=== PATIENT | female | born 1965 | race Caucasian/White ===

== ENCOUNTER 2025-03-20 09:45 | Emergency (ER) | payer MEDICARE, BC, SELFPAY ==
[2025-03-20 09:54] VITALS: BP 104/69; PULSE 54; RESP 18; TEMP 36.4; O2SAT 98
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
[2025-03-20] MEDS: TETANUS,DIPHTHERIA,AC PERTUSSIS ADULT (0.5 ML) BOOSTRIX IM (10:52)
[2025-03-20] MEDS: HYDROcodone/acetaminophen (*CRX) 5-325 MG TABLET 1 TAB PO (10:53)
[2025-03-20] MEDS: Please add drug allergy info to patient profile. 1 EACH XX (10:53)
--- OUTSIDE RECORDS SUMMARY | 2025-03-20 10:56 | XMS_ITS | Encounter Summary ---
Author Organization [facility] Address [address] [place] [address], [place] [address] Care Team Providers Care Web Marketing Coordinator Name Role Phone Donavon Echeverria MD Primary Care Provider [phone] Encounter Details Date Type Department Care Team (Late st Contact Info) Description 03/19/2025 Letter (Out) [facility] [address] [place] [address], [place] [address] Social History Tobacco Use Types Packs/Day Years Used Date Smoking Tobacco: Never Smokeless Tobacco: Never Alcohol Use Standard Drinks/Week Comments Yes 2 (1 standard drink = 0.6 oz pure alcohol) Two glasses of wine per month, on average; beer occasionally [facility] Utilities Answer Date Recorded In the past 12 months has th e Morph[employer], gas, oil, or water [employer] threatened to shut off services in your home? No 01/29/2025 PHQ-2 Answer Date Recorded PHQ-2 Score 0 02/05/2025 Housing Stability Vital Sign Answer Matt e Recorded In the last 12 months, was t here a time when you were not able to pay the mortgage or rent on time? No 11/24/2023 Number of Places Lived in the Last Year Not on f ile 11/24/2023 In the last 12 months, was t here a time when you did not have a steady place to sleep or slept in a long term (including now)? No 11/24/2023 Housing Stability Vital Sign Answer Matt e Recorded In the last 12 months, was t here a time when you were not able to pay the mortgage or rent on time? No 01/29/2025 Number of Times Moved in the Last Year Not on fi le 01/29/2025 At any time in the past 12 m [facility], were you homeless or living in a long term (including now)? 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 Answer Date of Assessment Author No 01/26/2024 6:25 AM Bharti Chandler RN * Are you blind or do you have serious difficulty seeing, even when wearing glasses? Answer Date of Assessment Author No 01/26/2024 6:25 AM Bharti Chandler RN * Do you have serious difficulty walking or climbing stairs? Answer Date of Assessment Author No 01/26/2024 6:25 AM Bharti Chandler RN * Do you have difficulty dressing or bathing? Answer Date of Assessment Author No 01/26/2024 6:25 AM Bharti Chandler RN * Because of a physical, mental, or emotional condition, do you have difficulty doing errands alone such as visiting a doctor's office or shopping? Answer Date of Assessment Author No 01/26/2024 6:25 AM Bharti Chandler RN documented as of this encounter Mental Status * Because of a physical, mental, or emotional condition, do you have serious difficulty concentrating, remembering, or making decisions? Answer Entry Date Author No 01/26/2024 6:25 AM CDT Bharti Recio RN documented in this encounter Plan of Treatment Upcoming Encounters Date Type Department Care Team (Late st Contact Info) Description 03/26/2025 8:00 AM CDT Appointment [facility] [address], [address] [place], [place] [id number] Primus, Anne Lucas MD [address] [place] [address] 04/02/2025 8:30 AM CDT Appointment [facility] Office Building 4 Infusion [address] [place] [address] 04/16/2025 8:30 AM CDT [facility] [address] [place] [address] Jesse Mcbride MD [address] [place] [address] 05/13/2025 8:00 AM CDT Appointment Respiratory Services - [address] [facility] [place] [address] 05/15/2025 8:15 AM CDT Office Visit [facility] Pulmonary Critical Care [address] [place] [address] Cirilo Oneill MD [address] [place] [address] 07/24/2025 8:30 AM PRESSURE TEST OPERATOR Appointment [facility] [address] [place] [address] Liana Holden MD [address] [place] [address] 07/24/2025 9:10 AM PRESSURE TEST OPERATOR Office Visit [facility] [address] [place] [address] Liana Holden MD [address] [place] [address] 08/20/2025 10:00 AM PRESSURE TEST OPERATOR Office Visit [facility] [address] [place] [address], [place] [address] Donavon Echeverria MD [address] [place] [address], [place] [address] 11/27/2025 8:00 AM CDT Office Visit [facility] Endocrinology [address] [place] [address] Devang Louise MD [address] [place] [address] documented as of this encounter Visit Diagnoses Not on filedocumented in this encounter Additional Health Concerns Assessment Noted Time PHQ-9 Depression Total Score: 3 02/06/20 25 8:19 AM CDT documented as of this encounter Care Teams Web Marketing Coordinator Relationship Specialty Start Date End Date Donavon Echeverria MD [address] [place] [address], [place] [address] PCP - General Internal Medicine 10/28/16 documented as of this encounter
--- OUTSIDE RECORDS SUMMARY | 2025-03-20 10:56 | XMS_ITS | Encounter Summary ---
Author Organization [facility] Address [address] [place] [address], [place] [address] Care Team Providers Care Gas Meter Repairer Name Role Phone Donavon Echeverria MD Primary Care Provider [phone] Reason for Visit * Reason Onset Date Comments Medication Refill 12/31/2019 Encounter Details Date Type Department Care Team (Late st Contact Info) Description 12/31/2019 Refill [facility] [address] [place] [address] Lorie Werner, show operations supervisor Refill Social History Tobacco Use Types Packs/Day Years Used Date Smoking Tobacco: Never Smokeless Tobacco: Never Alcohol Use Standard Drinks/Week Comments Yes 0 (1 standard drink = 0.6 oz pure alcohol) Two glasses of wine per month, on average; beer occasionally Comments No Sex and Gender Information Value Date Recorded Sex Assigned at Female 11/12/2019 7:52 AM AGRICULTURAL PRODUCE PACKER Legal Sex Female 12:43 PM AGRICULTURAL PRODUCE PACKER Gender Identity Female 11/12/2019 7:52 AM AGRICULTURAL PRODUCE PACKER Sexual Orientation Straight 11/12/2019 7: 52 AM AGRICULTURAL PRODUCE PACKER 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 No / Unsure 12/27/2019 8:17 AM CDT documented as of this encounter Functional Status * Are you deaf or do you have serious difficulty hearing? Answer Date of Assessment Author No 11/19/2019 3:52 PM Larisa Morley RN * Are you blind or do you have serious difficulty seeing, even when wearing glasses? Answer Date of Assessment Author No 11/19/2019 3:52 PM Larisa Morley RN * Do you have serious difficulty walking or climbing stairs? Answer Date of Assessment Author No 11/19/2019 3:52 PM Larisa Morley RN * Do you have difficulty dressing or bathing? Answer Date of Assessment Author No 11/19/2019 3:52 PM Larisa Morley RN * Because of a physical, mental, or emotional condition, do you have difficulty doing errands alone such as visiting a doctor's office or shopping? Answer Date of Assessment Author No 11/19/2019 3:52 PM Larisa Morley RN documented as of this encounter Mental Status * Because of a physical, mental, or emotional condition, do you have serious difficulty concentrating, remembering, or making decisions? Answer Entry Date Author No 11/19/2019 3:52 PM Larisa Morley RN documented in this encounter Plan of Treatment Upcoming Encounters Date Type Department Care Team (Late st Contact Info) Description 03/26/2025 8:00 AM CDT Appointment [address], [address] [place], [place] [id number] Anne Matthew MD [address] [facility] [place] [address] 04/02/2025 8:30 AM CDT Appointment [facility] Office Building [address] [place] [address] 04/16/2025 8:30 AM CDT Office Visit [facility] Rheumatology [address] [place] [address], [place] [address] Jesse Mcbride MD [address] [place] [address] 05/13/2025 8:00 AM CDT Appointment Respiratory Services - [address] [place] [address] 05/15/2025 8:15 AM CDT [facility] [address] [place] [address] Cirilo Oneill MD [address] [facility] [place] [address] 07/24/2025 8:30 AM AGRICULTURAL PRODUCE PACKER Appointment [facility] [address] [place] [address] Liana Holden MD [address] [place] [address] 07/24/2025 9:10 AM AGRICULTURAL PRODUCE PACKER Office Visit [facility] [address] [place] [address], [place] [address] Liana Holden MD [address] [place] [address] 08/20/2025 10:00 AM AGRICULTURAL PRODUCE PACKER Office Visit [facility] [address] [place] [address], [place] [address] Donavon Echeverria MD [address] [place] [address], [place] [address] 11/27/2025 8:00 AM CDT Office Visit [facility] Endocr[facility]ology [address] [facility] [place] [address] Devang Louise MD [address] [place] [address] documented as of this encounter Visit Diagnoses Diagnosis Idiopathic peripheral neuropathy Unspecified hereditary and idiopathic peripheral neuropathy documented in this encounter Additional Health Concerns Assessment Noted Time PHQ-9 Depression Total Score: 14 020 9:49 AM AGRICULTURAL PRODUCE PACKER documented as of this encounter Care Teams Gas Meter Repairer Relationship Specialty Start Date End Date Donavon Echeverria MD [address] [place] [id number] PCP - General Internal Medicine 10/28/16 documented as of this encounter
--- OUTSIDE RECORDS SUMMARY | 2025-03-20 10:56 | XMS_ITS | Clinical Summary ---
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 Please see photographs and notes related to the timing of this medication and onset of her rash. Fguihsnk-Cijaohhtku-Dn lymyxin Rash 01/28/2021 Penicillin G Rash Rash as a child Penicillins 11/25/2010 Unknown reaction Sulfa Antibiotics Hives,Itching,Rash 11/25/2010 Mild; Sulfonamides Medications Multiple Vitamins-Minerals (MULTIVITAMIN ADULT PO) Take by mouth daily Active Calcium Carbonate 600 MG TABS Take 1,500 mg by mouth daily 018 Active denosumab (PROLIA) 60 MG/ML SOSY injection Inject 1 mL (60 mg) into the skin every 6 months Active atorvaSTATin (LIPITOR) 10 MG tabletIndications:Mi xed hyperlipidemia Take 1 tablet (10 mg) by mouth daily 90 tablet 3 024 2024 Active metoprolol succinate (TOPROL XL) 25 MG XL tabletIndications:Pa lpitations Take 1 tablet (25 mg) by mouth daily 90 tablet 3 024 2024 Active levothyroxine (SYNTHROID) 100 MCG tablet Take 1 tablet (100 mcg) by mouth every morning (before breakfast) 90 tablet 1 025 2024 Active hydroxychloroquine (PLAQUENIL) 200 MG tabletIndications:Sy stemic lupus erythematosus, unspecified SLE type, unspecified organ involvement status (HCC) Take 1 tablet (200 mg) by mouth daily 90 tablet 1 025 Active predniSONE (DELTASONE) 1 MG tabletIndications:En counter for monitoring of belimumab therapy,Encounter for monitoring of hydroxychloroquine therapy,Sjogren's syndrome without extraglandular involvement,Intersti tial lung disease (HCC),Steroid-induce d osteoporosis Take 4 tablets (4 mg) by mouth daily 360 tablet 025 Active Belimumab (BENLYSTA) 200 MG/ML SOAJIndications:Syst emic lupus erythematosus (SLE) in adult ([facility]) Inject 200 mg into the skin every 7 days INJECT 200 MG UNDER THE SKIN EVERY 7 DAYS 12 mL 025 Active diazePAM (VALIUM) 5 MG tabletIndications:Hi p pain, unspecified laterality,Pain of lower extremity, unspecified laterality Take 1 tablet 1 hour before test, may repeat once if necessary 2 tablet 025 2024 Active Additional Information Patient not taking.Reported on 02/20/2025 mycophenolate (MYFORTIC) 180 MG tablet ECIndications:System ic lupus erythematosus (SLE) in adult ([facility]),Encounter for monitoring of belimumab therapy,Encounter for monitoring of hydroxychloroquine therapy,Interstitial lung disease (HCC),Sjogren's syndrome without extraglandular involvement,Encounte r for long-term current use of high risk medication Take 1 tablet by mouth twice daily for 2 weeks. If tolerating, then increase to 2 tablets in the AM, 1 tablet in the PM. 90 tablet 025 2024 Active mycophenolate (CELLCEPT) 500 MG tabletIndications:En counter for screening for viral disease,Systemic lupus erythematosus (SLE) in adult ([facility]),Encounter for monitoring of belimumab therapy,Encounter for monitoring of hydroxychloroquine therapy,Interstitial lung disease (HCC),Steroid-induce d osteoporosis,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 Take 1 tablet (500 mg) by mouth daily 90 tablet 025 2024 Discontinued Active Problems Patient Care Coordination No te Formatting of this note is d ifferent from the original. 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 Report: 08/18/2020 Med Management Agreement: none Problem Noted Date Diagnosed Date Osteopenia of multiple sites 03/18/2025 Primary osteoarthritis involving multiple joints 02/05/2025 Acute deep vein thrombosis ( DVT) of femoral vein of left lower extremity 05/12/2022 Reactive depression 12/27/2019 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 Pulmonary fibrosis 12/02/2019 Sepsis 11/14/2019 Chronic respiratory failure with hypoxia 020 Bronchopneumonia 11/14/2019 Shock 11/14/2019 Steroid-induced osteoporosis 11/09/2019 Overweight with body mass index (BMI) 25.0-29.9 11/08/2019 Thoracic spondylosis without myelopathy 11/08/19 Lumbosacral spondylosis without myelopathy 11/08 Idiopathic pulmonary fibrosis 11/06/2019 Compression fracture of T11 vertebra with routin e healing 10/17/2019 Spondylolysis, lumbar region 09/05/2019 Chronic midline low back pain without sciatica 1 11/06/2018 Maris esophagitis 09/05/2019 Polyneuropathy, peripheral sensorimotor axonal 1 10/01/2018 Pericardial effusion 07/25/2019 Pneumonia of left lower lobe due to infectious o rganism 06/05/2019 Pharyngeal dysphagia 03/26/2019 Gastroenteritis 03/26/2019 Iron deficiency 03/26/2019 Sjogren's syndrome 03/26/2019 Medication monitoring encounter 03/26/2019 Encounter for medical care 03/26/2019 Overview (12/24/2020): [place], [place] PCP: Osmel Echeverria MD [place] PCP: Osmel Echeverria MD Encounter for monitoring of belimumab therapy Cellulitis of left upper extremity 03/20/2019 Low iron 03/16/2019 Systemic lupus erythematosus 01/10/2019 Overview (02/18/2022): [facility] strong positive dsDNA, low C3 and C4, 06/27/2018 skin biopsy (Abi) positive lupus band test Encounter for monitoring of hydroxychloroquine t herapy 01/10/2019 Pericardial effusion 12/05/2018 SOB (shortness of breath) on exertion 12/05/2018 PVC's (premature ventricular contractions) 11/27 Sicca syndrome 11/27/2018 Long-term use of Plaquenil 09/08/2018 Left lower quadrant abdominal pain of unknown et iology 07/28/2018 Long-term use of hydroxychloroquine 07/24/2018 Overview (07/24/2018): METHOTREXATE stopped 5 mg BIW 02/2016 (elevated liver enzymes); HYDROXYCHLOROQUINE 04/2016-02/17/2017; METHOTREXATE resumed 11/17/2016; 11/19/2016 TPMT activity normal Low serum complement C4 07/24/2018 Low serum complement C3 07/24/2018 Normocytic anemia 07/24/2018 Bullous pemphigoid 06/10/2018 High risk medication use 06/10/2018 Raynaud's phenomenon without gangrene 06/10/2018 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 02/09 Leukopenia 02/09/2018 Pancytopenia 04/28/2017 Encounter for methotrexate monitoring 11/17/2016 Angio-edema 11/10/2016 Ankle edema 11/10/2016 Health care maintenance 10/28/2016 Overview (10/28/2016): Colon sep 18 2014 Polyps removed needs again 2018 Dr forde History of colon polyps 10/28/2016 Overview (10/28/2016): Colon aug 2014 Due for repeat 2019 Globus sensation 10/07/2016 LPRD (laryngopharyngeal reflux disease) 10/07/19 17 Postoperative hypothyroidism 08/31/2016 Fibrocystic disease of breast 09/30/2013 Non-neoplastic nevus 09/30/2013 Overview (06/07/2023): CHEST AND RIGHT THIGH Panic attack 01/03/2012 Sjogren's syndrome without extraglandular involv ement Palpitations Resolved Problems Problem Noted Date Diagnosed Date Resolved Date Idiopathic peripheral neuropathy 11/08/2019 11/23/2019 Thyroid disorder 06/05/2010 10/28/2016 Encounters Date Type Department Care Team Description 03/19/2025 Letter (Out) [facility] [address] [place] [address] 03/17/2025 Refill [facility] Rheumatology [address] [place] [address] [place] [address] Jesse Mcbride MD Med Change Request 03/14/2025 Telephone [facility] [address] [place] [address] Osmel Echeverria MD Follow-up 03/12/2025 7:58 AM CDT - 03/12/2025 11:59 PM CDT Hospital En[facility] [place] [place] [facility] [address] [place] [address] Osmel Echeverria MD Hip pain, unspecified laterality; Pain of lower extremity, unspecified laterality Discharge Disposition: Home 03/05/2025 9:20 AM CDT Lab/X-Ray Only [facility] [place] [place] [facility] [address] [place] [address] Osmel Echeverria MD Screening for diabetes mellitus 02/25/2025 Orders Only [facility] [address] [place] [address] Jenny Perdomo CMA Screening for diabetes mellitus (Primary Dx) 02/22/2025 Letter (Out) [facility] [place] [facility] [address] [address] 02/20/2025 3:20 PM CDT Lab/X-Ray Only [facility] [address] [address] Jesse Mcbride MD Systemic lupus erythematosus (SLE) in adult (HCC); Encounter for monitoring of belimumab therapy; Encounter for monitoring of hydroxychloroquine therapy; Interstitial lung disease (HCC); Sjogren's syndrome without extraglandular involvement; Encounter for long-term current use of high risk medication; History of DVT in adulthood; Rash; Skin cancer screening 02/20/2025 1:30 PM CDT Office Visit [facility] Rheumatology [address] [address] Jesse Mcbride MD Systemic lupus erythematosus (SLE) in adult ([facility]) (Primary Dx); Encounter for monitoring of belimumab therapy; Encounter for monitoring of hydroxychloroquine therapy; Interstitial lung disease (HCC); Sjogren's syndrome without extraglandular involvement; Encounter for long-term current use of high risk medication; History of DVT in adulthood; Rash; Skin cancer screening 02/08/2025 Telephone [facility] [address] [address] Osmel Echeverria MD Results 02/06/2025 9:20 AM CDT Lab/X-Ray Only [facility] [address] [address] Osmel Echeverria MD Primary osteoarthritis involving multiple joints; Neuropathy 02/06/2025 9:16 AM CDT - 02/06/2025 11:59 PM CDT Hospital Encounter [facility] Radiology [address] [address] Osmel Echeverria MD Primary osteoarthritis involving multiple joints; Neuropathy Discharge Disposition: Home 02/06/2025 9:16 AM CDT - 02/06/2025 11:59 PM CDT Hospital Encounter [facility] [address] [place] [address] Osmel Echeverria MD Primary osteoarthritis involving multiple joints; Neuropathy Discharge Disposition: Home 02/05/2025 8:20 AM CDT Office Visit [facility] [address] [facility] [address] [place] [address] Osmel Echeverria MD Postoperative hypothyroidism (Primary Dx); Pulmonary fibrosis (HCC); Sjogren's syndrome without extraglandular involvement; Primary osteoarthritis involving multiple joints; Neuropathy 02/01/2025 Refill [facility] Rheumatology [address] [place] [address] Huong Brown, LABORATORY SAMPLE CARRIER Med Change Request 01/31/2025 8:00 AM CDT Office Visit [facility] Medical Office Building [address] [place] [address] [place] [address] Donovan Hyatt MD Dependent edema (Primary Dx); Palpitations 01/04/2025 9:20 AM CDT Lab/X-Ray Only [facility] [address] [place] [address] Huong Brown NP Encounter for screening for viral disease; Systemic lupus erythematosus (SLE) in adult (HCC); Encounter for monitoring of belimumab therapy; Encounter for monitoring of hydroxychloroquine therapy; Interstitial lung disease (HCC); Steroid-induced osteoporosis; 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 01/04/2025 [facility] Rheumatology [address] [place] [address] Huong Brown NP Med Change Request from Last 3 Months Immunizations Immunization Administration Dates Next Due Covid-19 21 Day Interval Pfizer 05/06/2021,12/09,11/18/2020 Covid-19 21 Day Interval Pfi zer Marcus Cap 12/21/2021 Covid-19 Pfizer Bivalent Meek ster 12+ Yrs 08/18/2022 Influenza =>65yo, High Dose, Preservative Free 07/26/2024 Influenza =>65yo, Quadrivale nt, Adjuv, Preservative Free 07/05/2023,08/04/2022,07/09/2021,06/23 Influenza >3yo Split Virus 07/01/2010 Influenza >3yo Whole Virus 06/05/2009 Influenza Quadrivalent, Intradermal 06/19/2015 Influenza Quadrivalent, Pres ervative Free 07/10/2019,07/18/2018,10/03/2017,06/19,06/19/2013 Influenza Split Virus 05/20/2019, 018,06/16/2014,06/18,06/25/2011 Influenza Split Virus Preser vative Free 06/19/2013 Influenza, MDCK, trivalent, PF >=6 mos 3 Influenza, Quadrivalent 07/10/2019,05/20,07/18/2018,10/03,06/19/2015 Influenza, Quadrivalent (ccI IV4), Pres Free 06/19/2013 Influenza, Quadrivalent, Ped iatric, Preservative Free 07/10/2019,07/18/2018,10/03/2017 Influenza, Seasonal Vaccine 10/03/2017 NOVEL H1N1 (Preservative) 07/10/2009 Pneumococcal Conjugate Pcv20 06/07/2023 Pneumococcal Polysaccharide PPV23 05/15/2018 RSV, Recombinant Adjuvant 06/19/2024 Tdap 06/18/2013 Zoster Vaccine Recombinant 12/23/2023,07/11/2023 pneumococcal Conjugate PCV13 03/31/2016 Family History Medical History Relation Name Comments No Known Problems Brother 1 No Known Problems Brother 2 Stroke Father Gene Diabetes Maternal Grandmother Louvary Heart Disease Maternal Grandmother Scott Diabetes Mother Agnes Diet control Heart Disease Mother Agnes BRCA 1/2 (Postmeno) Neg Hx BRCA 1/2 (Premeno) Neg Hx Breast Cancer Neg Hx Breast Cancer (Postmeno) Neg Hx Breast Cancer (Premeno) Neg Hx Relation Name Status Comments Brother 1 Alive 1959 Brother 2 Alive 2 Father Gene (Age 83) Maternal Grandfather Maternal Grandmother Scott Mother Agnes 1931-11/2017 Paternal Grandfather Paternal Grandmother Social History Tobacco Use Types Packs/Day Years Used Date Smoking Tobacco: Never Smokeless Tobacco: Never Tobacco Cessation:Counseling Given: Yes Alcohol Use Standard Drinks/Week Comments Yes 2 (1 standard drink = 0.6 oz pure alcohol) Two glasses of wine per month, on average; beer occasionally [facility] Utilities Answer Date Recorded In the past 12 months has th e electric, gas, oil, or water company threatened to shut off services in your [...] place to sleep or slept in a retirement (including now)? No 11/24/2023 Housing Stability Vital Sign Answer Matt e Recorded In the last 12 months, was t here a time when you were not able to pay the mortgage or rent on time? No 01/29/2025 Number of Times Moved in the Last Year Not on fi le 01/29/2025 At any time in the past 12 m [facility], were you homeless or living in a retirement (including now)? 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 Not on file Not on file Not on file Last Filed Vital Signs Vital Sign Reading Time Taken Comments Blood Pressure 102/58 02/20/2025 1:27 PM CDT Pulse 60 02/20/2025 1:27 PM CDT Temperature 36.2 C (97.1 F) 03/19/2024 7:55 AM CDT Respiratory Rate 16 01/26/2024 7:10 AM CDT Oxygen Saturation 99% 02/20/2025 1:27 PM CDT Inhaled Oxygen Concentration - - Weight 70.8 kg (156 lb) 02/20/2025 1:27 PM CDT Height 165.1 cm (5' 5) 02/20/2025 1:27 PM CDT Body Mass Index 25.96 02/20/2025 1:27 PM CDT Plan of Treatment Upcoming Encounters Date Type Department Care Team (Late st Contact Info) Description 03/26/2025 8:00 AM CDT Appointment [facility] [address] [facility], [address] [place] [address] Anne Matthew MD [address] [facility] [place] [address] 04/02/2025 8:30 AM CDT Appointment [facility] [place] [place] [facility] [place] [id number] [facility] [place] [address] 04/16/2025 8:30 AM CDT Office Visit [facility] Rheumatology [address], [place] [address] [place] [address], [place] [address] Jesse Mcbride MD [address] [place] [address] 05/13/2025 8:00 AM CDT Appointment Respiratory Services - [address] [facility] [place] [address] 05/15/2025 8:15 AM CDT Office Visit [facility] [place] [place] [facility] [address] [facility] [place] [address] Cirilo Oneill MD [address] [place] [address] 07/24/2025 8:30 AM PLANNING ASSOCIATE Appointment [facility] [place] [facility] [address] [facility] [address] [place] [address] Liana Holden MD [address] [facility] [address] [place] [address] 07/24/2025 9:10 AM PLANNING ASSOCIATE Office Visit [facility] [address] [place] [address] [place] [address], [place] [address] Liana Holden MD [address] [place] [address] 08/20/2025 10:00 AM PLANNING ASSOCIATE Office Visit [facility] [address] [facility], [address] [place] [address] Osmel Echeverria MD [address] [place] [address] 11/27/2025 8:00 AM CDT Office Visit [facility] Endocrinology [address] [facility] [place] [address] Devang Louise MD [address] [facility] [place] [address] Health Maintenance Due Date Last Done Comments HIV Screening 1965 MMR VACCINES (1 of 1 - Standard series) 1966 ADULT TETANUS 06/18/2023 06/18/2013 COVID-19 Immunization (9 - Pfizer risk season) 2024 06/19/2024, 07/11/2023, 01/31/2023, Additional history exists Influenza Vaccine 04/19/2025 07/26/2024, , 08/04/2022, Additional history exists BREAST CANCER SCREENING 07/04/2025 07/04/20, 07/05/2023, 06/23/2023, Additional history exists Medicare Annual Wellness (AWV) 08/13/2025 08/13/2024, 06/07/2023 LIPID TESTING 10/11/2025 10/11/2024, 06/20, 04/20/2023, Additional history exists DEPRESSION SCREENING 02/05/2026 02/05/2025, 08/13/2024, 07/04/2024, Additional history exists BMI Above/Below Normal Parameters 02/20/2026 02/20/2025, 02/20/2025, 11/27/2024, Additional history exists Colon Cancer Screening 01/25/2027 01/26/2024, 2013 CERVICAL CANCER SCREENING 07/04/20272023, 07/04/2024, 07/04/2024, Additional history exists Diabetes Screening 03/05/2028 03/05/2025, 0 03/05/2025, 03/05/2025, Additional history exists Pneumococcal Vaccine: Peds to 50 & At-Risk Patients Aged Out 06/07/2023, 05/15/2018, 03/31/2016 No longer eligible based on patient's age to complete this topic Zoster Vaccine (Recombinant Vaccine) Completed 12/23/2023, 07/11/2023 CRC: Colonoscopy Discontinued 01/26/2024 RSV Vaccines Completed 06/19/2024 Hepatitis C Screening ages 18 to 79 once Completed 12/06/2024 HEPATITIS A VACCINES Aged Out No long er eligible based on patient's age to complete this topic HEPATITIS B VACCINES Aged Out No long er eligible based on patient's age to complete this topic HIB VACCINES Aged Out No longer eligi ble based on patient's age to complete this topic HPV VACCINES Aged Out No longer eligi ble based on patient's age to complete this topic IPV VACCINES Aged Out No longer eligi ble based on patient's age to complete this topic MENINGOCOCCAL VACCINE Aged Out No rebecca ellen eligible based on patient's age to complete this topic Meningococcal B Vaccine Aged Out No l onger eligible based on patient's age to complete this topic ROTAVIRUS VACCINES Aged Out No longer eligible based on patient's age to complete this topic Procedures Procedure Name Priority Date/Time Associated Diagnosis Comments MRI LUMBAR SPINE WO CONTRAST Routine 03/12/2025 8:46 AM CDT Hip pain, unspecified laterality Pain of lower extremity, unspecified laterality GLUCOSE TOLERANCE 3 HR (180 MIN) Routine 03/05/2025 1:29 PM CDT Screening for diabetes mellitus GLUCOSE TOLERANCE 2 HR (120 MIN) Routine 03/05/2025 12:28 PM CDT Screening for diabetes mellitus GLUCOSE TOLERANCE 1 HR (60 MIN) Routine 03/05/2025 11:22 AM CDT Screening for diabetes mellitus GLUCOSE TOLERANCE 0 MIN Routine 03/05/2025 9:20 AM CDT Screening for diabetes mellitus HEMOGLOBIN A1C Routine 02/20/2025 3:30 PM CDT Systemic lupus erythematosus (SLE) in adult ([facility]) Encounter for monitoring of belimumab therapy Encounter for monitoring of hydroxychloroquine therapy Interstitial lung disease (HCC) Sjogren's syndrome without extraglandular involvement Encounter for long-term current use of high risk medication CARDIOLIPIN AB IGA/G/M Routine 02/20/2025 3:30 PM CDT Systemic lupus erythematosus (SLE) in adult ([facility]) Encounter for monitoring of belimumab therapy Encounter for monitoring of hydroxychloroquine therapy Interstitial lung disease (HCC) Sjogren's syndrome without extraglandular involvement Encounter for long-term current use of high risk medication History of DVT in adulthood Rash Skin cancer screening BETA 2 GLYCOPROTEIN 1 AB IGA Routine 02/20/2025 3:30 PM CDT Systemic lupus erythematosus (SLE) in adult ([facility]) Encounter for monitoring of belimumab therapy Encounter for monitoring of hydroxychloroquine therapy Interstitial lung disease (HCC) Sjogren's syndrome without extraglandular involvement Encounter for long-term current use of high risk medication History of DVT in adulthood Rash Skin cancer screening BETA 2 GLYCOPROTEIN 1 IGG IGM Routine 02/20/2025 3:30 PM CDT Systemic lupus erythematosus (SLE) in adult ([facility]) Encounter for monitoring of belimumab therapy Encounter for monitoring of hydroxychloroquine therapy Interstitial lung disease (HCC) Sjogren's syndrome without extraglandular involvement Encounter for long-term current use of high risk medication History of DVT in adulthood Rash Skin cancer screening LUPUS ANTICOAGULANT REFLEX PANEL Routine 02/20/2025 3:30 PM CDT Systemic lupus erythematosus (SLE) in adult ([facility]) Encounter for monitoring of belimumab therapy Encounter for monitoring of hydroxychloroquine therapy Interstitial lung disease (HCC) Sjogren's syndrome without extraglandular involvement Encounter for long-term current use of high risk medication History of DVT in adulthood Rash Skin cancer screening ANGIOTENSIN CONVERTING ENZYME Routine 02/20/2025 3:30 PM CDT Systemic lupus erythematosus (SLE) in adult ([facility]) Encounter for monitoring of belimumab therapy Encounter for monitoring of hydroxychloroquine therapy Interstitial lung disease (HCC) Sjogren's syndrome without extraglandular involvement Encounter for long-term current use of high risk medication History of DVT in adulthood Rash Skin cancer screening COMPREHENSIVE METABOLIC PANEL Routine 02/20/2025 3:30 PM CDT Systemic lupus erythematosus (SLE) in adult ([facility]) Encounter for monitoring of belimumab therapy Encounter for monitoring of hydroxychloroquine therapy Interstitial lung disease (HCC) Sjogren's syndrome without extraglandular involvement Encounter for long-term current use of high risk medication CBC W AUTO DIFF Routine 02/20/2025 3:30 PM CDT Systemic lupus erythematosus (SLE) in adult ([facility]) Encounter for monitoring of belimumab therapy Encounter for monitoring of hydroxychloroquine therapy Interstitial lung disease (HCC) Sjogren's syndrome without extraglandular involvement Encounter for long-term current use of high risk medication SEDIMENTATION RATE (SED RATE) Routine 02/20/2025 3:30 PM CDT Systemic lupus erythematosus (SLE) in adult ([facility]) Encounter for monitoring of belimumab therapy Encounter for monitoring of hydroxychloroquine therapy Interstitial lung disease (HCC) Sjogren's syndrome without extraglandular involvement Encounter for long-term current use of high risk medication C-REACTIVE PROTEIN Routine 02/20/2025 3: 30 PM CDT Systemic lupus erythematosus (SLE) in adult ([facility]) Encounter for monitoring of belimumab therapy Encounter for monitoring of hydroxychloroquine therapy Interstitial lung disease (HCC) Sjogren's syndrome without extraglandular involvement Encounter for long-term current use of high risk medication DSDNA ANTIBODY Routine 02/20/2025 3:30 PM CDT Systemic lupus erythematosus (SLE) in adult ([facility]) Encounter for monitoring of belimumab therapy Encounter for monitoring of hydroxychloroquine therapy Interstitial lung disease (HCC) Sjogren's syndrome without extraglandular involvement Encounter for long-term current use of high risk medication C3 COMPLEMENT Routine 02/20/2025 3:30 PM CDT Systemic lupus erythematosus (SLE) in adult ([facility]) Encounter for monitoring of belimumab therapy Encounter for monitoring of hydroxychloroquine therapy Interstitial lung disease (HCC) Sjogren's syndrome without extraglandular involvement Encounter for long-term current use of high risk medication C4 COMPLEMENT Routine 02/20/2025 3:30 PM CDT Systemic lupus erythematosus (SLE) in adult ([facility]) Encounter for monitoring of belimumab therapy Encounter for monitoring of hydroxychloroquine therapy Interstitial lung disease (HCC) Sjogren's syndrome without extraglandular involvement Encounter for long-term current use of high risk medication URINALYSIS (UA) Routine 02/20/2025 3:30 PM CDT Systemic lupus erythematosus (SLE) in adult ([facility]) Encounter for monitoring of belimumab therapy Encounter for monitoring of hydroxychloroquine therapy Interstitial lung disease (HCC) Sjogren's syndrome without extraglandular involvement Encounter for long-term current use of high risk medication PROTEIN/CREATININE RATIO URINE Routine 02/20/2025 3:30 PM CDT Systemic lupus erythematosus (SLE) in adult ([facility]) Encounter for monitoring of belimumab therapy Encounter for monitoring of hydroxychloroquine therapy Interstitial lung disease (HCC) Sjogren's syndrome without extraglandular involvement Encounter for long-term current use of high risk medication XR LUMBAR SPINE 2-3 VIEWS Routine 02/06/2025 9:41 AM CDT Primary osteoarthritis involving multiple joints Neuropathy XR PELVIS W LATERAL HIP BILATERAL Routine 02/06/2025 9:41 AM CDT Primary osteoarthritis involving multiple joints Neuropathy XR KNEE RIGHT 3 VIEWS Routine 02/06/2025 9:41 AM CDT Primary osteoarthritis involving multiple joints Neuropathy XR KNEE LEFT 3 VIEWS Routine 02/06/2025 9:41 AM CDT Primary osteoarthritis involving multiple joints Neuropathy B12 FOLATE Routine 02/06/2025 9:13 AM CDT Primary osteoarthritis involving multiple joints Neuropathy CBC W AUTO DIFF Routine 01/04/2025 9:23 AM CDT Encounter for screening for viral disease Systemic lupus erythematosus (SLE) in adult ([facility]) Encounter for monitoring of belimumab therapy Encounter for monitoring of hydroxychloroquine therapy Interstitial lung disease (HCC) Steroid-induced osteoporosis half-way current use of systemic steroids COMPREHENSIVE METABOLIC PANEL Routine 01/04/2025 9:23 AM CDT Encounter for screening for viral disease Systemic lupus erythematosus (SLE) in adult ([facility]) Encounter for monitoring of belimumab therapy Encounter for monitoring of hydroxychloroquine therapy Interstitial lung disease (HCC) Steroid-induced osteoporosis half-way current use of systemic steroids C-REACTIVE PROTEIN Routine 01/04/2025 9: 23 AM CDT Encounter for screening for viral disease Systemic lupus erythematosus (SLE) in adult ([facility]) Encounter for monitoring of belimumab therapy Encounter for monitoring of hydroxychloroquine therapy Interstitial lung disease (HCC) Steroid-induced osteoporosis 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 SEDIMENTATION RATE (SED RATE) Routine 01/04/2025 9:23 AM CDT Encounter for screening for viral disease Systemic lupus erythematosus (SLE) in adult ([facility]) Encounter for monitoring of belimumab therapy Encounter for monitoring of hydroxychloroquine therapy Interstitial lung disease (HCC) Steroid-induced osteoporosis 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 PROTEIN/CREATININE RATIO URINE Routine 01/04/2025 9:23 AM CDT Encounter for screening for viral disease Systemic lupus erythematosus (SLE) in adult ([facility]) Encounter for monitoring of belimumab therapy Encounter for monitoring of hydroxychloroquine therapy Interstitial lung disease (HCC) Steroid-induced osteoporosis 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 URINALYSIS WITH REFLEX TO CULTURE, IF INDICATED Routine 01/04/2025 9:23 AM CDT Encounter for screening for viral disease Systemic lupus erythematosus (SLE) in adult ([facility]) Encounter for monitoring of belimumab therapy Encounter for monitoring of hydroxychloroquine therapy Interstitial lung disease (HCC) Steroid-induced osteoporosis half-way current use of systemic steroids C4 COMPLEMENT Routine 01/04/2025 9:23 AM CDT Encounter for screening for viral disease Systemic lupus erythematosus (SLE) in adult ([facility]) Encounter for monitoring of belimumab therapy Encounter for monitoring of hydroxychloroquine therapy Interstitial lung disease (HCC) Steroid-induced osteoporosis half-way current use of systemic steroids C3 COMPLEMENT Routine 01/04/2025 9:23 AM CDT Encounter for screening for viral disease Systemic lupus erythematosus (SLE) in adult ([facility]) Encounter for monitoring of belimumab therapy Encounter for monitoring of hydroxychloroquine therapy Interstitial lung disease (HCC) Steroid-induced osteoporosis half-way current use of systemic steroids HEPATITIS C ANTIBODY Routine 12/06/2024 8:45 AM CDT Encounter for screening for viral disease LIPID PROFILE Routine 10/11/2024 8:40 AM 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 2. Multiple chronic thoracolumbar vertebral compression fractures. No acute fracture. Narrative 03/12/2025 9:01 AM CDT LUMBAR SPINE MRI INDICATION: Back pain. Lumbar spine degenerative change.. TECHNIQUE: Multisequence, multiplanar MRI of the lumbar spine without IV contrast. Sequences obtained include: sagittal T1 weighted, sagittal T2 weighted, sagittal STIR, and axial T2 weighted scans were performed through the lumbar spine. COMPARISON: 02/06/2025 radiographs FINDINGS: Numbering for this report presumes five non-rib bearing lumbar type vertebral bodies, with L5 defined by the lumbosacral angle. The conus medullaris terminates at the L1 level. Mild left convex lumbar scoliosis. 2 mm retrolisthesis L2 on L3. 8 mm anterolisthesis L4 on L5. Chronic compression deformities at each level from T10 through L5 with height loss most pronounced at T11 where there is 70% anterior wedge compression deformity. No bone marrow edema to suggest acute compression fracture. Lumbar ligamentous structures are intact. Moderate intervertebral disc height loss and endplate degenerative change L4-5. Otherwise, mild spondylosis at other lumbar levels. At T10-11, mild annular bulge and small osteophytes with mild bilateral facet arthropathy and ligamentum flavum thickening mildly narrows the central canal with mild bilateral foraminal stenosis. L1-L2: Patent central canal and neural foramina. L2-L3: Mild annular bulge and small endplate osteophytes. Mild bilateral facet arthropathy with mild left foraminal stenosis. Patent central canal and right neural foramen. L3-L4: Mild bilateral facet arthropathy with mild right foraminal stenosis. Patent central canal and left neural foramen. L4-L5: Mild annular bulge with posterior annular fissuring and small osteophytes. Mild bilateral facet arthropathy and ligamentum flavum thickening. Mild central canal stenosis. Moderate right and mild left foraminal stenosis. L5-S1: Mild annular bulge. Mild bilateral facet arthropathy with mild right foraminal stenosis. Canal and left neural foramen. Included intraabdominal structures are unremarkable. Procedure Note Monroe Ceja MD - 06/24/2025 LUMBAR SPINE MRI INDICATION: Back pain. Lumbar spine degenerative change.. TECHNIQUE: Multisequence, multiplanar MRI of the lumbar spine without IV contrast. Sequences obtained include: sagittal T1 weighted, sagittal T2 weighted, sagittal STIR, and axial T2 weighted scans were performedthrough the lumbar spine. COMPARISON: 02/06/2025 radiographs FINDINGS: Numbering for this report presumes five non-rib bearing lumbar typevertebral bodies, with L5 defined by the lumbosacral angle. The conus medullaris terminates at the L1 level. Mild left convex lumbar scoliosis. 2 mm retrolisthesis L2 on L3. 8 mm anterolisthesis L4 on L5. Chronic compression deformities at each levelfrom T10 through L5 with height loss most pronounced at T11 where there is 70%anterior wedge compression deformity. No bone marrow edema to suggest acutecompression fracture. Lumbar ligamentous structures are intact. Moderateintervertebral disc height loss and endplate degenerative change L4-5. Otherwise, mild spondylosis at other lumbar levels. At T10-11, mild annular bulge and small osteophytes with mild bilateralfacet arthropathy and ligamentum flavum thickening mildly narrows the centralcanal with mild bilateral foraminal stenosis. L1-L2: Patent central canal and neural foramina. L2-L3: Mild annular bulge and small endplate osteophytes. Mild bilateralfacet arthropathy with mild left foraminal stenosis. Patent central canal andright neural foramen. L3-L4: Mild bilateral facet arthropathy with mild right foraminalstenosis. Patent central canal and left neural foramen. L4-L5: Mild annular bulge with posterior annular fissuring and small osteophytes. Mild bilateral facet arthropathy and ligamentum flavumthickening. Mild central canal stenosis. Moderate right and mild left foraminalstenosis. L5-S1: Mild annular bulge. Mild bilateral facet arthropathy with mildright foraminal stenosis. Canal and left neural foramen. Included intraabdominal structures are unremarkable. IMPRESSION: 1. Lumbar spine degenerative change with multilevel stenosis as detailedabove, most pronounced at L4-5 where there is grade 1 anterolisthesis withmoderate right and mild left foraminal stenosis. 2. Multiple chronic thoracolumbar vertebral compression fractures. Noacute fracture. Osmel Echeverria MD [facility] IM[facility] MRI ORDERABLES Final Result * GLUCOSE TOLERANCE 3 HR (180 MIN) (03/05/2025 1:29 PM CDT) Glucose, GTT 3 Hr 91 70 - 140 MG/DL [facility] Blood 03/05/2025 1:29 PM CDT 03/05/2025 1:30 PM CDT Osmel Echeverria MD CHEMISTRY ORDERABLES Final Re sult Performing Organization Address [facility] Co de Phone Number [facility] [address] [place] [address] * (ABNORMAL) GLUCOSE TOLERANCE 2 HR (120 MIN) (03/05/2025 12:28 PM CDT) Glucose, GTT 2 Hr 44(LL) 70 - 155 MG/DL [facility] Blood 03/05/2025 12:2 8 PM CDT 03/05/2025 12:29 PM CDT Osmel Echeverria MD CHEMISTRY ORDERABLES Final Re sult Performing Organization Address [facility] Phone Number [facility] [address] [place] [address] * GLUCOSE TOLERANCE 1 HR (60 MIN) (03/05/2025 11:22 AM CDT) Glucose, GTT 1 Hr 143 70 - 180 MG/DL [facility] Blood 03/05/2025 11:2 2 AM CDT 03/05/2025 11:52 AM CDT us Osmel Echeverria MD CHEMISTRY ORDERABLES Final Re sult Performing Organization Address [facility] Co tn Phone Number [facility] [address] [place] [address] * GLUCOSE TOLERANCE 0 MIN (03/05/2025 9:20 AM CDT) Glucose, GTT Fasting 86 70 - 95 MG/DL [facility] Blood 03/05/2025 9:20 AM CDT 03/05/2025 9:21 AM CDT Osmel Echeverria MD CHEMISTRY ORDERABLES Final Re sult [facility] [address] [place] [address] * LUPUS ANTICOAGULANT REFLEX PANEL (02/20/2025 3:30 PM CDT) Lupus Protime-D 12.3 12.0 - 15.5 s [facility] PTT-LA RATIO 0.83 <=1.20 [facility] DRVVT SCREEN RATIO 0.87 <=1.20 [facility] ANTI-XA QUALITATIVE INTERPRETATION Not Performed Not Present [facility] Thrombin Time Not Performed <=19.5 s [facility] ANTICOAGULANT MEDICATION NEUTRALIZATION Not Performed Not Performed [facility] NEUTRALIZED PTT-LA RATIO Not Performed <=1.20 [facility] NEUTRALIZED DRVVT SCREEN RATIO Not Performed <=1.20 [facility] DRVVT 1:1 MIX RATIO Not Performed <=1.20 [facility] DRVVT CONFIRMATION RATIO Not Performed <=1.20 [facility] HEXAGONAL PHOSPHOLIPID CONFIRMATION Not Performed <=7.9 s [facility] LUPUS ANTICOAGULANT, INTERPRETATION See Note [facility] Comment: (NOTE) Lupus anticoagulant not detected. This panel did not detect evidence for heparin, direct thrombin inhibitors, or direct Xa inhibitors and drug neutralization was not performed. Lupus anticoagulant antibodies are heterogeneous and antibody titers fluctuate over time. Laboratory tests used to identify lupus anticoagulant demonstrate variable sensitivity. Testing is best performed when the patient is not acutely ill and not anticoagulated. If there is strong clinical suspicion for antiphospholipid antibody syndrome (APS), consider testing for cardiolipin and beta-2 glycoprotein 1 antibodies (IgG and IgM) if this testing has not already been performed. INTERPRETIVE INFORMATION: Lupus Anticoagulant Reflex Panel This test was developed and its performance characteristics determined by [facility]. It has not been cleared or approved by the U.S. Food and Drug Administration. This test was performed in a CLIA-certified laboratory and is intended for clinical purposes. Performed By: [facility] [address] [place] [id number] Dishwasher: Elvin Boston MD, PhD CLIA Number: [id number] 02/20/2025 3:30 PM CDT 02/20/2025 3:32 PM CDT Jesse Cabrera MD LAB SEND OUT ORDERABLES Fin al Result Performing Organization Address [facility] Co de Phone Number [facility] [address] [place] [address] * (ABNORMAL) DSDNA ANTIBODY (02/20/2025 3:30 PM CDT) DSDNA Quant 6(H) 0 - 4 IU/ML [facility] DSDNA Comment ====dsDNA Normal Ranges==== [facility] Comment: <5 IU/ML Negative 5-9 IU/ML Indeterminate >9 IU/ML Positive 02/20/2025 3:30 PM CDT 02/20/2025 3:32 PM CDT Jesse Cabrera MD CHEMISTRY ORDERABLES Final Result Performing Organization Address [facility] Co de Phone Number [facility] [address] [place] [address] * BETA 2 GLYCOPROTEIN 1 AB IGA (02/20/2025 3:30 PM CDT) Beta-2 Glycoprotein 1 IgA Antibody <10 <=20 [facility] Comment: (NOTE) Performed By: [facility] [address] [place] [address] Dishwasher: Elvin Boston MD, PhD CLIA Number: [id number] Blood 02/20/2025 3:30 PM CDT 02/20/2025 3:33 PM CDT Jesse Cabrera MD LAB SEND OUT ORDERABLES Fin al Result Performing Organization Address [facility] Co de Phone Number [facility] [address] [place] [address] * PROTEIN/CREATININE RATIO URINE (02/20/2025 3:30 PM CDT) Only the most recent of2 resultswithin the time period is included. Protein Urine <6 MG/DL [facility] Comment:NO NORMAL RANGE Creatinine Urine 83 MG/DL [facility] Comment:NO NORMAL RANGE Prot/Creat Ratio, UR UNABLE TO CALCULATE <0.10 [facility] Urine 02/20/2025 3:30 PM CDT 02/20/2025 3:33 PM CDT us Jesse Cabrera MD URINE ORDERABLES Final Resu lt Performing Organization Address City/[facility]/ZIP Co de Phone Number [facility] [address] [place] [address] * (ABNORMAL) SEDIMENTATION RATE (SED RATE) (02/20/2025 3:30 PM CDT) Only the most recent of2 resultswithin the time period is included. Sedimentation Rate, Erythrocyte 43(H) 0 - 20 MM/HR [facility] Blood 02/20/2025 3:30 PM CDT 02/20/2025 3:32 PM CDT us Jesse Cabrera MD HEMATOLOGY ORDERABLES Final Result Performing Organization Address [facility] Co de Phone Number [facility] [address] [place] [address] * BETA 2 GLYCOPROTEIN 1 IGG IGM (02/20/2025 3:30 PM CDT) Beta-2 Glycoprotein 1 IgG Antibody <10 <=20 [facility] Beta-2 Glycoprotein 1 IgM Antibody <10 <=20 [facility] Comment: (NOTE) INTERPRETIVE INFORMATION: [id number] I, IgG and IgM Antibody The persistent presence of IgG and/or IgM beta 2 glycoprotein I (B2GPI) antibodies is a laboratory criterion for the diagnosis of antiphospholipid syndrome (APS). Persistence is defined as moderate or high levels of IgG and/or IgM B2GPI antibodies detected in two or more specimens drawn at least 12 weeks apart (J Throm Haemost. 2006;4:295-306). B2GPI results greater than 20 [facility] (IgG) and/or [facility] (IgM) are considered positive based on the cutoff values established for this test. International reference materials and consensus units for anti-B2GPI antibodies have not been established (Clin Ronal Acta. 2012;413(1-2):358-60; Arthritis Rheum. 2012;64(1):1-10.); results can be variable between different commercial immunoassays and cannot be compared. Strong clinical correlation is recommended for a diagnosis of APS. Low positive IgG and IgM B2GPI antibody levels should be interpreted in light of APS-specific clinical manifestations and/or other criteria phospholipid antibody tests. Performed By: [facility] [address] [place] [address] Dishwasher: Elvin Boston MD, PhD CLIA Number: [id number] Blood 02/20/2025 3:30 PM CDT 02/20/2025 3:33 PM CDT Jesse Cabrera MD IMMUNOLOGY ORDERABLES Final Result [facility] [address] [place] [address], [facility] * CARDIOLIPIN AB IGA/G/M (02/20/2025 3:30 PM CDT) Anticardiolipin IgM Antibody <10 <=12 MPL [facility] Comment: (NOTE) INTERPRETIVE INFORMATION: Anti-Cardiolipin IgM <=12 MPL: Negative 13-19 MPL: Indeterminate 20-80 MPL: Low to Moderately Positive 81 MPL or above: High Positive The persistent presence of IgG and/or IgM cardiolipin (CL) antibodies in moderate or high levels (greater than 40 GPL and/or greater than 40 MPL units) is a laboratory criterion for the diagnosis of antiphospholipid syndrome (APS). Persistence is defined as moderate or high levels of IgG and/or IgM CL antibodies detected in two or more specimens drawn at least 12 weeks apart (J Throm Haemost. 2006;4:295-306). Lower positive levels of IgG and/or IgM CL antibodies (above cutoff but less than 40 GPL and/or less than 40 MPL units) may occur in patients with the clinical symptoms of APS; therefore, the actual significance of these levels is undefined. Results should not be used alone for diagnosis and must be interpreted in light of APS-specific clinical manifestations and/or other criteria phospholipid antibody tests. Anticardiolipin IgA Antibody <10 <=11 APL [facility] Comment: (NOTE) INTERPRETIVE INFORMATION: Cardiolipin Antibodies, IgA <=11 APL: Negative 12-19 APL: Indeterminate 20-80 APL: Low to Moderately Positive 81 APL or above: High Positive Performed By: [facility] [address] [place] [address] Dishwasher: Elvin Boston MD, PhD CLIA Number: [id number] Anticardiolipin IgG Antibody <10 <=14 GPL [facility] Comment: (NOTE) INTERPRETIVE INFORMATION: Anti-Cardiolipin IgG Ab <=14 GPL: Negative 15-19 GPL: Indeterminate 20-80 GPL: Low to Moderately Positive 81 GPL or above: High Positive The persistent presence of IgG and/or IgM cardiolipin (CL) antibodies in moderate or high levels (greater than 40 GPL and/or greater than 40 MPL units) is a laboratory criterion for the diagnosis of antiphospholipid syndrome (APS). Persistence is defined as moderate or high levels of IgG and/or IgM CL antibodies detected in two or more specimens drawn at least 12 weeks apart (J Throm Haemost. 2006;4:295-306). Lower positive levels of IgG and/or IgM CL antibodies (above cutoff but less than 40 GPL and/or less than 40 MPL units) may occur in patients with the clinical symptoms of APS; therefore, the actual significance of these levels is undefined. Results should not be used alone for diagnosis and must be interpreted in light of APS-specific clinical manifestations and/or other criteria phospholipid antibody tests. Blood 02/20/2025 3:30 PM CDT 02/20/2025 3:33 PM CDT us Jesse Cabrera MD IMMUNOLOGY ORDERABLES Final Result [facility] [address] [id number], [facility] * URINALYSIS (UA) (02/20/2025 3:30 PM CDT) Glucose UA NEGATIVE NEGATIVE MG/DL [facility] Protein UA NEGATIVE <30 MG/DL [facility] Bilirubin UA NEGATIVE NEGATIVE [facility] Urobilinogen UA <2.0 <2 MG/DL [facility] pH UA 6.0 <7.0 [facility] Blood UA NEGATIVE NEGATIVE [facility] Ketones UA NEGATIVE NEGATIVE MG/DL [facility] Nitrite UA NEGATIVE NEGATIVE [facility] Leukocyte Esterase UA NEGATIVE NEGATIVE [facility] UR Appearance [facility] Specific [place] UA 1.017 <1.036 [facility] Color YELLOW YELLOW [facility] Site CCMS [facility] WBC Urine 1 <5 /HPF [facility] RBC Urine NONE SEEN <3 /HPF [facility] Urine 02/20/2025 3:30 PM CDT 02/20/2025 3:33 PM CDT us Jesse Cabrera MD URINE ORDERABLES Final Resu lt Performing Organization Address City/State/[facility] Co de Phone Number [facility] [address] [place] [address] [facility] [address] * (ABNORMAL) CBC W AUTO DIFF (02/20/2025 3:30 PM CDT) Only the most recent of2 resultswithin the time period is included. White Blood Cell Count 5.1 4.0 - 10.4 THOUS/uL [facility] Red Blood Cell Count 4.25 3.90 - 5.0 MIL/uL [facility] Hemoglobin 11.9 11.6 - 14.9 GM/DL [facility] Hematocrit 37.7(L) 38.0 - 48.0 % [facility] Mean Corpuscular Volume 88.7 81.0 - 98.0 FL [facility] Mean Corpuscular Hemoglobin 28.0 27.0 - 33.0 PG [facility] Mean Corpuscular Hemoglobin Conc 31.6(L) 33.0 - 37.0 G/DL [facility] Rdwcv 13.7 11.5 - 14.5 % [facility] Rdwsd 44.8(H) 35.0 - 42.0 FL [facility] Platelet Count 287 130 - 400 THOUS/uL [facility] Mean Platelet Volume 10.0 7.4 - 10.4 FL [facility] Nucleated Red Blood Cells 0.0 0.0 /100 WBC'S [facility] Abs NRBC 0.0 0.0 THOUS/uL [facility] Differential Type [facility] Neutrophils 69.4 42.2 - 75.2 % [facility] Lymphs 20.8 20.5 - 51.1 % [facility] Monocytes 8.0 1.7 - 9.3 % [facility] Eos 1.0 1.0 - 3.0 % [facility] Basos 0.4 0.0 - 2.0 % [facility] Imm Gran 0.4 0.0 - 0.4 % [facility] Comment: IG PARAMETER REFLECTS THE COMBINATION OF METAMYELOCYTES, MYELOCYTES, AND PROMYELOCYTES. Neutrophils Absolute Count 3.5 1.7 - 8.3 THOUS/uL [facility] Lymphocytes Absolute Count 1.1 0.8 - 5.3 THOUS/uL [facility] Monocytes Absolute Count 0.4 0.1 - 1.0 THOUS/uL [facility] Eosinophils Absolute Count 0.1 0.0 - 0.3 THOUS/uL [facility] Basophils Absolute Count 0.0 0.0 - 0.2 THOUS/uL [facility] Abs Imm Gran 0.02 0.00 - 0.04 THOUS/uL [facility] Blood 02/20/2025 3:30 PM CDT 02/20/2025 3:32 PM CDT us Jesse Cabrera MD HEMATOLOGY ORDERABLES Final Result [facility] [address] [place], [place] [address] [phone] * ANGIOTENSIN CONVERTING ENZYME (02/20/2025 3:30 PM CDT) Angiotensin Converting Enzyme 36 16 - 85 U/L [employer] Comment: (NOTE) Performed By: [facility] [address] [place] [address] Dishwasher: Elvin Boston MD, PhD CLIA Number: [id number] Blood 02/20/2025 3:30 PM CDT 02/20/2025 3:33 PM CDT Jesse Cabrera MD CHEMISTRY ORDERABLES Final Result Performing Organization Address [facility] Co de Phone Number [address] * C3 COMPLEMENT (02/20/2025 3:30 PM CDT) Only the most recent of2 resultswithin the time period is included. C3 Complement 127.9 90.0 - 180.0 MG/DL [facility] Blood 02/20/2025 3:30 PM CDT 02/20/2025 3:32 PM CDT us Jesse Cabrera MD CHEMISTRY ORDERABLES Final Result Performing Organization Address [facility] Phone Number [facility] [address] [place] [address] * C4 COMPLEMENT (02/20/2025 3:30 PM CDT) Only the most recent of2 resultswithin the time period is included. C4 Complement 24.0 10.0 - 40.0 MG/DL [facility] Blood 02/20/2025 3:30 PM CDT 02/20/2025 3:32 PM CDT us Jesse Cabrera MD CHEMISTRY ORDERABLES Final Result Performing Organization Address [facility] Co de Phone Number [facility] [address] [place] [address] * (ABNORMAL) C-REACTIVE PROTEIN (02/20/2025 3:30 PM CDT) Only the most recent of2 resultswithin the time period is included. C-Reactive Protein 1.0(H) 0.0 - 0.5 MG/DL [facility] Blood 02/20/2025 3:30 PM CDT 02/20/2025 3:32 PM CDT us Jesse Cabrera MD CHEMISTRY ORDERABLES Final Result Performing Organization Address [facility] Co de Phone Number [facility] [address] [place] [address] * (ABNORMAL) HEMOGLOBIN A1C (02/20/2025 3:30 PM CDT) Hemoglobin A1C 5.8(H) 4.0 - 5.6 % [facility] Estimated Average Glucose 120(H) 68 - 114 MG/DL [facility] Blood 02/20/2025 3:30 PM CDT 02/20/2025 3:32 PM CDT us Jesse Cabrera MD CHEMISTRY ORDERABLES Final Result Performing Organization Address [facility] Co de Phone Number [facility] [address] [place] [address] * (ABNORMAL) COMPREHENSIVE METABOLIC PANEL (02/20/2025 3:30 PM CDT) Only the most recent of2 resultswithin the time period is included. Glucose 91 70 - 99 MG/DL [facility] Blood Urea Nitrogen 21 8 - 23 MG/DL [facility] Creatinine 0.9 0.4 - 1.1 MG/DL [facility] Sodium 139 136 - 145 MMOL/L [facility] Potassium 4.1 3.5 - 5.4 MMOL/L [facility] Chloride 103 98 - 107 MMOL/L [facility] Co2 26 20 - 33 MMOL/L [facility] Calcium 9.5 8.7 - 10.4 MG/DL [facility] Protein Total 7.2 6.0 - 8.2 G/DL [facility] Albumin 4.0 3.4 - 4.8 G/DL [facility] A/G Ratio 1.3 0.8 - 2.0 [facility] Bilirubin, Total 0.2(L) 0.3 - 1.2 MG/DL [facility] AST(SGOT) 18 0 - 39 U/L [facility] Alkaline Phosphatase 71 25 - 130 U/L [facility] Alt (SGPT) 13 7 - 35 U/L [facility] Est GFR 73(L) >90 ML/MIN/1. 73sq.m [facility] GFR Comment Reported eGFR is based on the CKD-EPI 2020 equation that does not use a race coefficient. [facility] Comment: eGFR declines with age, even in people without kidney disease. SEE CHART BELOW FOR AVERAGE ESTIMATED eGFR BASED ON AGE. AGE(YEARS) AVERAGE ESTIMATED GFR <60 >90 60-69 85 >70 75 Anion Gap 10 7 - 14 MMOL/L [facility] Blood 02/20/2025 3:30 PM CDT 02/20/2025 3:32 PM CDT Jesse Cabrera MD CHEMISTRY ORDERABLES Final Result Performing Organization Address City/State/[facility] Co de Phone Number [facility] [address] [place] [address] * XR LUMBAR SPINE 2-3 VIEWS (02/06/2025 9:41 AM CDT) Anatomical Region Laterality Modality L-spine Radiographic Esperanza ging 02/06/2025 10:4 4 AM CDT Narrative 02/06/2025 1:47 PM CDT EXAMINATION: XR LUMBAR SPINE 2-3 VIEWS DATE AND TIME: 02/06/2025 9:16 AM CDT REFERRING PROVIDER: 100 OSMEL ECHEVERRIA MD HISTORY: pain COMPARISON: 08/21/2019 FINDINGS:Examination demonstrates osteopenia with multiple new compression from is seen throughout the lower thoracic and lumbar spine compared to the previous study in 2019. There are no more recent studies for comparison. There are stable spinal listhesis at L4-5. Prominent diffuse facet arthropathy. SUMMARY:Severe endplate compression deformities at all lumbar levels new from 2019. Severe facet arthropathy. Grade 1 spondylolisthesis L4-5. Consider MRI to further evaluate. Procedure Note Jaren Will MD - 02/06/2025 EXAMINATION: XR LUMBAR SPINE 2-3 VIEWS DATE AND TIME: 02/06/2025 9:16 AM CDT REFERRING PROVIDER: 100 OSMEL ECHEVERRIA MD HISTORY: pain COMPARISON: 08/21/2019 FINDINGS:Examination demonstrates osteopenia with multiple new compressionfrom is seen throughout the lower thoracic and lumbar spine compared to theprevious study in 2019. There are no more recent studies for comparison. Thereare stable spinal listhesis at L4-5. Prominent diffuse facet arthropathy. SUMMARY:Severe endplate compression deformities at all lumbar levels newfrom 2019. Severe facet arthropathy. Grade 1 spondylolisthesis L4-5. Consider MRI to further evaluate. Osmel Echeverria MD [facility] IMG DIAG ORDERABLES Final Result * XR PELVIS W LATERAL HIP BILATERAL (02/06/2025 9:41 AM CDT) Anatomical Region Laterality Modality Pelvis Radiographic Esperanza ging 02/06/2025 10:4 0 AM CDT Narrative 02/06/2025 1:47 PM CDT EXAMINATION: XR PELVIS W LATERAL HIP BILATERAL REFERRING PROVIDER: 100 OSMEL ECHEVERRIA MD DATE AND TIME:02/06/2025 9:16 AM CDT INDICATION: pain COMPARISON:None FINDINGS:Mild degenerative changes seen bilaterally. Findings are symmetric. SUMMARY:Mild symmetric degenerative change Procedure Note Jaren Will MD - 02/06/2025 EXAMINATION: XR PELVIS W LATERAL HIP BILATERAL REFERRING PROVIDER: 100 OSMEL ECHEVERRIA MD DATE AND TIME:02/06/2025 9:16 AM CDT INDICATION: pain COMPARISON:None FINDINGS:Mild degenerative changes seen bilaterally. Findings aresymmetric. SUMMARY:Mild symmetric degenerative change Osmel Echeverria MD [facility] IMG DIAG ORDERABLES Final Result * XR KNEE RIGHT 3 VIEWS (02/06/2025 9:41 AM CDT) Anatomical Region Laterality Modality Knee Radiographic Esperanza ging 02/06/2025 10:3 8 AM CDT Narrative 02/06/2025 1:46 PM CDT EXAMINATION: XR KNEE RIGHT 3 VIEWS REFERRING PROVIDER: 100 OSMEL ECHEVERRIA MD DATE AND TIME:02/06/2025 9:16 AM CDT INDICATION: knee discomfort COMPARISON:None FINDINGS:Joint spaces are fairly well preserved. Perhaps mild narrowing medially. Superior patellar spur. No joint effusion SUMMARY:Mild degenerative change Procedure Note Jaren Will MD - 02/06/2025 EXAMINATION: XR KNEE RIGHT 3 VIEWS REFERRING PROVIDER: 100 OSMEL ECHEVERRIA MD DATE AND TIME:02/06/2025 9:16 AM CDT INDICATION: knee discomfort COMPARISON:None FINDINGS:Joint spaces are fairly well preserved. Perhaps mild narrowing medially. Superior patellar spur. No joint effusion SUMMARY:Mild degenerative change Osmel Echeverria MD [facility] IM DIAG ORDERABLES Final Result * XR KNEE LEFT 3 VIEWS (02/06/2025 9:41 AM CDT) Anatomical Region Laterality Modality Knee Radiographic Esperanza ging 02/06/2025 10:4 0 AM CDT Narrative 02/06/2025 1:46 PM CDT EXAMINATION: XR KNEE LEFT 3 VIEWS REFERRING PROVIDER: 100 OSMEL ECHEVERRIA MD DATE AND TIME:02/06/2025 9:16 AM CDT INDICATION: pain COMPARISON:None FINDINGS:Mild joint space narrowing seen medially. No joint effusion. SUMMARY:Mild degenerative change Procedure Note Jaren Will MD - 02/06/2025 EXAMINATION: XR KNEE LEFT 3 VIEWS REFERRING PROVIDER: 100 OSMEL ECHEVERRIA MD DATE AND TIME:02/06/2025 9:16 AM CDT INDICATION: pain COMPARISON:None FINDINGS:Mild joint space narrowing seen medially. No joint effusion. SUMMARY:Mild degenerative change Osmel Echeverria MD [facility] IMG DIAG ORDERABLES Final Result * B12 FOLATE (02/06/2025 9:13 AM CDT) Vitamin B-12 355 200 - 1,000 PG/ML [facility] Folate 13.0 5.4 - 24.0 NG/ML [facility] Blood 02/06/2025 9:13 AM CDT 02/06/2025 9:14 AM CDT Osmel Echeverria MD CHEMISTRY ORDERABLES Final Re sult [facility] [address] [place] [address] * (ABNORMAL) URINALYSIS WITH REFLEX TO CULTURE, IF INDICATED (01/04/2025 9:23 AM CDT) Glucose UA NEGATIVE NEGATIVE MG/DL [facility] Protein UA 20 <30 MG/DL [facility] Bilirubin UA NEGATIVE NEGATIVE [facility] Urobilinogen UA <2.0 <2 MG/DL [facility] pH UA 6.5 <7.0 [facility] Blood UA NEGATIVE NEGATIVE [facility] Ketones UA NEGATIVE NEGATIVE MG/DL [facility] Nitrite UA NEGATIVE NEGATIVE [facility] Leukocyte Esterase UA NEGATIVE NEGATIVE [facility] UR Appearance [facility] Specific [place] UA 1.020 <1.036 [facility] Color YELLOW YELLOW [facility] Site [facility] Comment, Urine Culture NOT INDICATED [facility] RBC Urine 1 <3 /HPF [facility] WBC Urine 1 <5 /HPF [facility] Bacteria RARE(A) NONE /HPF [facility] Squamous Epithelial 1 <5 /HPF [facility] Mucus RARE /LPF [facility] Urine 01/04/2025 9:23 AM CDT 01/04/2025 9:24 AM CDT Huong Brown LABORATORY SAMPLE CARRIER URINE ORDERABLES Final Result Performing Organization Address [facility] Co de Phone Number [facility] [address] [place] [address] [facility] [address] [place] [address] [place] [address] * HEPATITIS C ANTIBODY (12/06/2024 8:45 AM CDT) [facility] Hepatitis C IgG Antibody NONREACTIVE (NEG) NONREACTIVE (NEG) [facility] Hep C IgG Comment SEE NOTES [facility] Comment: THIS ASSAY HAS NOT BEEN FDA CLEARED OR APPROVED FOR THE SCREENING OF BLOOD OR PLASMA DONORS. TEST PERFORMED USING [employer] Blood 12/06/2024 8:45 AM CDT 12/06/2024 8:46 AM CDT Huong Brown LABORATORY SAMPLE CARRIER IMMUNOLOGY ORDERABLES Final R esult Performing Organization Address [facility] Co de Phone Number [facility] [address] [facility] [place] [address] [place] [address] * LIPID PROFILE (10/11/2024 8:40 AM PLANNING ASSOCIATE) [facility] Cholesterol 158 <200 MG/DL [facility] Triglycerides 67 0 - 149 MG/DL [facility] HDL 65 >40 MG/DL [facility] LDL Cholesterol 80 <130 MG/DL [facility] LDL/HDL Ratio 1.22 [facility] VLDL, Calc 13 5 - 40 MG/DL [facility] LDL, High Risk ========= ========= ========= [facility] Comment: RELATIVE RISK MALE FEMALE 1/2 AVERAGE 1.00 1.47 AVERAGE 3.55 3.22 2X AVERAGE 6.25 5.03 3X AVERAGE 7.99 6.14 AN AVERAGE RISK RATIO INFERS A 10% LIKELIHOOD OF SIGNIFICANT CAD BY AGE 60. OTHER RISK FACTORS SUCH GLUCOSE INTOLERANCE, SMOKING HISTORY, HYPERTENSION AND OBESITY WILL FURTHER MODIFY THE RELATIVE RISK RATIO. Blood 10/11/2024 8:40 AM PLANNING ASSOCIATE 10/11/2024 8:42 AM PLANNING ASSOCIATE us Donovan Hyatt MD CHEMISTRY ORDERABLES Final Re sult [facility] [address] [place] [address] * MAMMO SCREENING BILATERAL - DIGITAL W ALEX (07/04/2024 10:06 AM CDT) Anatomical Region Laterality Modality Breast Bilateral Mammography Impressions 07/04/2024 4:04 PM CDT AND RECOMMENDATIONS: There is no mammographic evidence of malignancy. Return to Annual Screening is recommended for both breasts. ACR BI-RADS CATEGORY 1 - NEGATIVE INTERPRETING PHYSICIAN: Alexandr Enciso MD [facility] [address], [facility] [address] [address] Narrative 07/04/2024 4:04 PM CDT COMPARISON: Comparison is made to prior studies. EXAM: MAMMO SCREENING BILATERAL - DIGITAL W ALEX VIEWS: Bilateral: Craniocaudal, Mediolateral oblique BREAST DENSITY: The breasts are heterogeneously dense, which may obscure small masses. FINDINGS: There are no suspicious masses, calcifications or areas of architectural distortion. This exam was reviewed with the aid of CAD R2 DMV 8.7 Liana Holden MD [facility] ORDERABLE S Final Result * CYTOLOGY, PAP (THIN PREP) (07/04/2024 12:00 AM CDT) 07/04/2024 07/05/2024 Narrative [facility] - 07/10/2024 9:48 AM CDT CASE: [id number] PATIENT: MONISHA HAWKINS SPECIMEN SOURCE: Cervical CLINICAL INFORMATION: Routine Screening; HPV, Women > 30 yrs SPECIMEN: A. THIN PREP PAP Imaging Directed Cytology PRIOR PAP SMEAR DIAGNOSES: DATE PATHOLOGY# DIAGNOSIS PHYSICIAN 06/18/22 [id number] WNL LIANA HOLDEN 08/13/19 [id number] [facility] LIANA HOLDEN 07/15/16 [id number] TOMER LIANA HOLDEN GENERAL CATEGORIZATION: Negative for intraepithelial lesion or malignancy. REMARKS: Atrophic smear pattern. SPECIMEN ADEQUACY: Satisfactory for evaluation. Interpretation performed by AALIYAH ENRIQUEZ CT([facility]). Electronically signed 07/06/2024 12:03:06 PM [address] [facility] [place] [address] HPV RESULTS: Negative for High Risk HPV by TMA Nucleic acid amplification detects the E6/E7 viral messenger RNA of the high risk HPV types 16, 18, 31, 33, 35, 39, 45, 51, 52, 56, 58, 59, 66 and 68 associated with cervical cancer and its precursor lesions. Cross-reactivity with low-risk HPV genotypes 26, 67, 70 and 82 may occur. Sensitivity may be affected by specimen collection, stage of infection and the presence of interfering substances. HPV results should be interpreted in conjunction with laboratory and clinical data. This test is intended for medical purposes only. HPV testing should not be used for screening of atypical squamous cells of undetermined significance (ASCUS) in women under age 21. HPV Addendum #1 performed by RUSSELL NICOLAS([facility]). Electronically signed 07/10/2024 9:48:[address] [place] [address] [place] [address] Liana Holden MD PATHOLOGY/CYTOLOGY ORDE KATHRIN Edited Result - Final [facility] * COLONOSCOPY, DIAGNOSTIC (01/26/2024 6:30 AM CDT) Narrative Heather Forde MD - 01/26/2024 6:30 AM CDT Heather Forde MD 01/26/2024 6:53 AM Colonoscopy Procedure Note Date of Service: 01/26/24 Referring Provider: Osmel Echeverria Procedure: Colonoscopy with polypectomy (cold snare) Pre-operative Primary Diagnosis: screening for colon cancer Pre-operative Secondary Diagnosis: none Post-operative Diagnosis: Right colon polyps x3, sigmoid diverticulosis, internal and external hemorrhoids Quality of colonic preparation: Adequate Polyps removed?: Yes Cecum intubated?: Yes Sedation: see anesthesia record Pre-Procedure Physical: Patient's medications, allergies, past medical, surgical, social and family histories were reviewed and updated as appropriate. Visit Vitals BP 138/70 Pulse 75 Resp 18 Ht 5' 5 Wt 157 lb (71.2 kg) LMP 11/23/2010 SpO2 100% BMI 26.13 kg/m OB Status Postmenopausal Smoking Status Never BSA 1.81 m Airway: normal Heart: normal S1 and S2 Lungs: clear Abdomen: soft, nontender, normal bowel sounds Mental Status: awake and alert; oriented to person, place, and time ASA Class: 2 Procedure Details Informed consent was obtained for the procedure, including sedation. Risks of perforation, hemorrhage, adverse drug reaction and aspiration were discussed. The patient was placed in the left lateral decubitus position. Based on the pre-procedure assessment, including review of the patient's medical history, medications, allergies, and review of systems, she had been deemed to be an appropriate candidate for sedation; she was therefore sedated per anesthesia. The patient was monitored continuously with ECG tracing, pulse oximetry, blood pressure monitoring, and direct observations. A rectal examination was performed. The pediatric colonoscope was inserted into the rectum and advanced under direct vision to the terminal ileum. A careful inspection was made as the colonoscope was withdrawn, including a retroflexed view of the rectum; findings and interventions are described below. Appropriate photodocumentation was obtained. Findings: -diverticulosis, mild in degree, involving the descending colon and the sigmoid -hemorrhoids (internal and external), Moderate in size -polyp(s) - #3, 4-6 mm in size, located in the ascending colon and the hepatic flexure, removed by cold snare and retrieved for pathology -normal terminal ileum Specimens: Right colon polyps Complications: None; patient tolerated the procedure well. Disposition: PACU - hemodynamically stable. Condition: stable Recommendations: -Await pathology., -Repeat colonoscopy in 3 years. Osmel Echeverria MD GI PROCEDURE ORDERABLES Final Result from Last 3 Months or Most Recently Relevant to Health Maintenance Insurance [employer]THEM/BCBS MEDICARE [facility]IC[facility] MEDIC[facility] Advance Directives * Full Code (Latest Code Status on File) Date Activated Date Inactivated Comments 11/14/2019 7:58 PM 11/19/2019 6:03 PM Care Teams [employer] Relationship Specialty Start Date End Date Osmel Echeverria MD [address] [place] [address], [place] [facility] PCP - General Internal Medicine 10/28/16
--- OUTSIDE RECORDS SUMMARY | 2025-03-20 10:56 | XMS_ITS | Encounter Summary ---
Author Organization [facility] Address [address] [place] [address] [place] [address] Care Team Providers Care Jewelry Drill Operator Name Role Phone Donavon Echeverria MD Primary Care Provider [phone] Reason for Referral * Referral (Routine) - Waiting Outcome - CHRIS Specialty Diagnoses / Procedures Referred By Contac t Referred To Contact Physical Therapy Diagnoses Osteopenia of multiple sites Donavon Echeverria MD [address] [place] [address] Phone: tel: fax: [place] [address] Phone: tel: fax: Referral ID Status Reason Start Date Expiration Date Visits Requested Visits Authorized [id number] Waiting Outcome - CHRIS Consult 03/19/2025 1 1 Question Answer Evaluate? Yes Develop Plan of Care? Yes Treatment? Yes Comments Back pain Reason for Visit * Reason Onset Date Comments Follow-up 03/14/2025 Encounter Details Date Type Department Care Team (Late st Contact Info) Description 03/14/2025 Telephone [facility] [address] [place] [phone] Donavon Echeverria MD [address] [address] Follow-up Social History Tobacco Use Types Packs/Day Years Used Date Smoking Tobacco: Never Smokeless Tobacco: Never Alcohol Use Standard Drinks/Week Comments Yes 2 (1 standard drink = 0.6 oz pure alcohol) Two glasses of wine per month, on average; beer occasionally [facility] Utilities Answer Date Recorded In the past 12 months has th e [employer], gas, oil, or water [employer] threatened to shut off services in your [...] place to sleep or slept in a intermediate (including now)? No 11/24/2023 Housing Stability Vital Sign Answer Matt e Recorded In the last 12 months, was t here a time when you were not able to pay the mortgage or rent on time? No 01/29/2025 Number of Times Moved in the Last Year Not on fi le 01/29/2025 At any time in the past 12 m [facility], were you homeless or living in a intermediate (including now)? 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 She voiced understanding. * Telephone Encounter - Donavon Echeverria MD - 03/19/2025 4:23 PM CDT [facility] and would give until april * Telephone Encounter - Jenny Perdomo CMA - 03/19/2025 3:52 PM CDT Patient [facility] and wants to know how long she should wait to consider pain management if needed? * Telephone Encounter - Donavon Echeverria MD - 03/18/2025 5:26 PM CDT Called and discussed mri results of her back evidence of narrowing where the nerves exit. Already with evidence of osteopenia via bone scan along with prednisone 4 mg daily I would prefer to avoid trial of medrol bolus every other day discussed consideration of referral to pain clinic for discussion of possible epidural however presently feels her lower back is doing better (though some in her thoracic region.) will see if a trial of physical therapy beneficial in strengthening her back and thereby easing thepain. If not then will proceed with referral to pain clinic * Telephone Encounter - Dixie Picekns LPN - 03/14/2025 9:06 AM CDT Spoke with patient, patient voiced she is fine with discussing options over the phone and she will be available any evening that is convenient for you to call. * Telephone Encounter - Dixie Pickens LPN - 03/14/2025 9:06 AM CDT ----- Message from Donavon Echeverria sent at 03/13/2025 10:00 PM CDT ----- No evidence of herniated disc or spinal stenosis does have multiple levels of compression fracturesof her vertebra old also evidence of narrowing where the nerves exit the area please set her up to discuss options documented in this encounter Plan of Treatment Upcoming Encounters Date Type Department Care Team (Late st Contact Info) Description 03/26/2025 8:00 AM CDT Appointment [facility] [address] [facility], [address] [place] [address] Anne Matthew MD [address] [facility] [place] [address] 04/02/2025 8:[address] [facility] Medical Office Building 4 Infusion [address] [place] [address] 04/16/2025 8:30 AM CDT [facility] [address], [facility] [address] [place] [address] Jesse Mcbride MD [address] [place] [address] 05/13/2025 8:00 AM CDT Appointment Respiratory Services - [address] [place] [address] 05/15/2025 8:15 AM CDT Office Visit [facility] Pulmonary Critical Care [address] [facility] [place] [address] Cirilo Oneill MD [address] [facility] [place] [place] [address] 07/24/2025 8:30 AM [employer] Appointment [facility] [address] [place] [address] Liana Holden MD [address] [place] [address] 07/24/2025 9:10 AM [employer] Office Visit [facility] [address] [place] [address] Liana Holden MD [address] [place] [address] 08/20/2025 10:00 AM [employer] Office Visit [facility] [address] [place] [address] Donavon Echeverria MD [address] [facility] [address] [place] [address] 11/27/2025 8:00 AM CDT Office Visit [facility] Endocrinology [address] [facility] [place] [address] Devang Louise MD [address] [place] [address] Scheduled Referrals Name Type Priority Associated Diagnoses Orde r Schedule AMB REFERRAL TO PHYSICAL THERAPY Outpatient Referral Routine Osteopenia of multiple sites Ordered: 03/19/2025 documented as of this encounter Visit Diagnoses Diagnosis Osteopenia of multiple sites- Primary documented in this encounter Additional Health Concerns Assessment Noted Time PHQ-9 Depression Total Score: 3 02/06/20 25 8:19 AM CDT documented as of this encounter Care Teams Jewelry Drill Operator Relationship Specialty Start Date End Date Donavon Echeverria MD [address] [place] [address], [place] [address] PCP - General Internal Medicine 10/28/16 documented as of this encounter
--- OUTSIDE RECORDS SUMMARY | 2025-03-20 10:56 | XMS_ITS | Data Portability ---
Author Organization [place] [facility] [facility]Ltle SisterAsst Address [address] [place] [address] Care Team Providers Care Supervisor [employer] Name Role Phone COLLINS SANTANA Software Integrator OSMEL CRENSHAW Primary Care Provider Assessment Encounter Date Assessment Date Assessment LastModified by Organization Details LastModified Time 01/27/2021 01/27/2021 Patient presents to clinic with skin tear of the R forearm, obtained 2 days ago. On exam, skin tear approximated well, cleansed with sterile water and hibiclens. steri strips applied to bring together wound loosely due to large skin fold that is still viable tissue. No sign of infection at this time. Educated on wound care and when to seek care in clinic. Understood and agreed to treatment plan. [email or web address] Not available 01/27/2021 15:31:08 02/17/2022 02/17/2022 I discussed the findings with the patient today. Certainly possibilities would be an allergic reaction of some type, sunburn, versus other etiologies. I do not feel strongly that this is all due to to sun exposure because of the fact that the skin is not sensitive to touch and she really does not complain of very much pain. Her main complaint is severe itching to the point that she states is driving her crazy. I think she has been scratching so much that it has broken open these blisters. I suspect that she may have had an insect bite or some type of exposure that may have triggered a allergic reaction in this area. She is already taking 5 mg of prednisone daily for her lupus and I instructed her to stop taking this completely for 6 days. I will give her an IM dose of dexamethasone and follow this with a 5-day course of prednisone 40 mg daily. Once this is finished she can go back to her 5 mg of prednisone daily. I cannot completely rule out the possibility of infection, especially with the open blisters, and I will give her a 10-day course of antibiotic as well. I discussed proper wound care with her and encouraged her to apply Vaseline to her open wounds couple times a day. I encouraged her to follow-up with her PCP on Tuesday if her symptoms are not at all improved or seem to be getting worse. If she cannot get in to see her PCP she can return here instead. I discussed other general, symptomatic treatment recommendations as described in the patient instruction section. Patient stated understanding and agreed with the plan of care. [email or web address] Not available 02/17/2022 11:16:59 Plan of Treatment Reminders Order Date Submit Date Provider Last Modified By Organization Details Last Modified Time Details Appointments None recorded. Lab gas + CO (carbon monoxide), arterial blood - PULMONARY ABG 2019 020 [email or web address] Not available 0 08:41:35 Referral None recorded. Procedures repair of laceration procedure (PROC) 2021 022 [email or web address] Not available 2 10:45:25 pulmonary function test procedure (PROC) - Complete PFT with ABG AND Carbon Monoxide (Blood) PULMONARY ABG 2019 020 [email or web address] Not available 0 08:41:19 pulmonary stress test, simple (PROC) 2019 020 [email or web address] Asv- In-Office Orders - For Internal Use Only - [address], [place], [address], 0 11:07:57 Surgeries None recorded. Imaging None recorded. Medication Orders doxycycline monohydrate 100 mg capsule 2021 022 [facility]/Pharmacy #[id number], [address] [facility], [place], [address], 14:09:22 prednisone 20 mg tablet 2021 022 [facility]/Pharmacy #[id number], [address] [place], [address], 10:59:15 dexamethaso ne sodium phosphate 10 mg/mL injection solution 2021 022 [email or web address] Not available 14:09:09 mupirocin 2 % topical ointment 2020 021 [email or web address] [facility]/Pharmacy #[id number], [address] [place], [address], 10:20:34 Patient TargetsNo targets recorded. Patient Instructions Encounter Date Encounter Id Patient Instructions Last Modified By Organization Details Last Modified Time 01/27/2021 [id number] skin tears: care instructions [email or web address] Not available 01/27/2021 15:02:29 -Try to leave th e steri strips on for 1 week. May trim the edges of the steri-strips as they peel back. Keep the area completely dry while the steristrips are present. -If you have trouble healing over the next 1-2 weeks or you develop infection, you may need to call your nursing program chair to discuss temporarily stopping the steriod. -Once the steristrips have fallen off or removed, may use the antibiotic ointment as prescribed. At this time, please wash the area daily with Dial soap and water. dry off immediately. continue to try to keep protected and dry -Will take approximately 21 days for the area to completely heal. -Please look for redness spreading down the arm, pain, or drainage. Please seek care if this returns. -Wear sunscreen over the area daily to avoid change in skin pigment or worsen scarring. [email or web address] Not available 01/27/2021 15:06:22 02/17/2022 [id number] Start taking the prednisone tomorrow morning and finish it completely, even if symptoms improve before it is done. Also start taking the antibiotic (doxycycline) today and finish all of it, as directed. You may also try cool compresses and oatmeal baths to help soothe your skin and to help with itching. Avoid hot water when bathing. DO NOT scratch at skin as this may cause infection and will worsen the itching. You may take benadryl at night and claritin or zyrtec during the day and you may use over the triamcinolone cream/ointment you already have to help with itching. See your primary care physician or return to urgent care if no better in 2-3 days, or sooner if worse. [email or web address] Not available 02/17/2022 11:01:37 02/21/2022 [id number] cuts closed with stitches: care instructions [email or web address] Not available 02/21/2022 15:07:32 Take Tylenol and/or ibuprofen as needed for pain. Take all of the antibiotic as directed. Keep wound clean, dry and covered with dressing for first 48 hours. Water may run over wound after 48 hours (shower) but do not soak or submerge until wound is completely healed. May clean wound with water and mild soap after 48 hours. DO NOT clean with peroxide. Apply a thin layer of vaseline to wound using a Q-tip once or twice a day as needed to keep wound moist. May cover as needed for protection and keep wound clean. Try to avoid large buildup of scabs with gentle cleaning using water and a Q-tip as necessary. Sutures (yayo) should be removed in ___7-10 days. Return sooner for signs of infection (redness, swelling, discharge, fever), significant bleeding or any other questions or concerns. [email or web address] Not available 02/21/2022 15:06:46 Call if any questions, concerns, or change/worsening in symptoms. Mayte verbalized understanding of all information discussed today and is agreeable to the treatment plan. [email or web address] Not available 02/21/2022 14:19:34 Reason for Referral None Reported. Results Created Date Observation Date Name Description Value Unit Range Abnormal Flag Note LastModifiedBy Organization Detail LastModifiedTime 09/27/19 20 09/27/2019 mai head s test, simpl e (PROC ) Unknown Analyte 93 Not Available Asv- In-Office Orders - For Internal Use Only - [place] [address] [place], [address], 09/27/2019 09:13:18 09/27/19 20 09/27/2019 pulmo nary stres s test, simpl e (PROC ) Unknown Analyte 129 Not Available Asv- In-Office Orders - For Internal Use Only - [place], [address], 09/27/2019 09:13:18 09/27/19 20 09/27/2019 pulmo nary stres s test, simpl e (PROC ) Unknown Analyte 0 Not Available Asv- In-Office Orders - For Internal Use Only - [place], [address], 09/27/2019 09:13:18 09/27/1909/27/2019 pulmo nary stres s test, simpl e (PROC ) Unknown Analyte RA Not Available Asv- In-Office Orders - For Internal Use Only - [place] [address] [place], [address], 09/27/2019 09:13:18 09/27/1909/27/2019 pulmo nary stres s test, simpl e (PROC ) Unknown Analyte 88 Not Available Asv- In-Office Orders - For Internal Use Only - [place] [address], [address], 09/27/2019 09:13:18 09/27/19 20 09/27/2019 pulmo nary stres s test, simpl e (PROC ) Unknown Analyte 130 Not Available Asv- In-Office Orders - For Internal Use Only - [place], [address], 09/27/2019 09:13:18 09/27/1909/27/2019 pulmo nary stres s test, simpl e (PROC ) Unknown Analyte RA, placed on 2lpm pulse Not Available Asv- In-Office Orders - For Internal Use Only - [place] [address], [address], 09/27/2019 09:13:18 09/27/1909/27/2019 pulmo nary stres s test, simpl e (PROC ) Unknown Analyte 88 Not Available Asv- In-Office Orders - For Internal Use Only - [place] [address] [place], [address], 09/27/2019 09:13:18 09/27/19 20 09/27/2019 pulmo nary stres s test, simpl e (PROC ) Unknown Analyte 141 Not Available Asv- In-Office Orders - For Internal Use Only - [place], [address], 09/27/2019 09:13:18 09/27/19 20 09/27/2019 pulmo nary stres s test, simpl e (PROC ) Unknown Analyte 2lpm pulse, placed on 3lpm pulse Not Available Asv- In-Office Orders - For Internal Use Only - [place] [address], [address], 09/27/2019 09:13:18 09/27/19 20 09/27/2019 pulmo nary stres s test, simpl e (PROC ) Unknown Analyte 90 Not Available Asv- In-Office Orders - For Internal Use Only - [place] [address], [address], 09/27/2019 09:13:18 09/27/19 20 09/27/2019 pulmo nary stres s test, simpl e (PROC ) Unknown Analyte 141 Not Available Asv- In-Office Orders - For Internal Use Only - [place] [address] [place], [address], 09/27/2019 09:13:18 09/27/1909/27/2019 pulmo nary stres s test, simpl e (PROC ) Unknown Analyte 3 Not Available Asv- In-Office Orders - For Internal Use Only - [place], [address], 09/27/2019 09:13:18 09/27/19 20 09/27/2019 pulmo nary stres s test, simpl e (PROC ) Unknown Analyte 3lpm pulse Not Available Asv- In-Office Orders - For Internal Use Only - [address], [address], 09/27/2019 09:13:18 09/24/19 20 compl ete PFT* No observ ation record ed. [email or web address] Asv- Scheduling - [address], [address], 11/06/2019 15:50:04 09/25/19 20 09/24/2019 compl ete PFT* No observ ation record ed. [email or web address] [facility] [address] [place] [address], [address], 09/27/2019 11:09:15 09/27/19 20 09/27/2019 pulmo nary stres s test, simpl e (PROC ) No observ ation record ed. [email or web address] Asv- In-Office Orders - For Internal Use Only - [address], [address], 09/27/2019 11:09:08 10/10/19 20 10/10/2019 CT, chest , w/o contr ast [facility] CT EXAMIN ATION: CT CHEST WO/C - ACC #: [id number] CPT: 54582 Mod: RIS Order: [id number] (COUNTS INCLUDE 234 BEDS AT THE [facility]) (0010) HIS Order: [id number] STARTE D: Oct 10 2019 10:06A M COMPLE KEKE: Oct 10 2019 10:25A M TECH INITIA LS: MMR FULL RESULT : CT chest with high resolu tion imagin g, No contra st COMPAR JUAN ANTONIO: 017 INDICA TION: Collag en vascul ar diseas e/lupu s. Assess for inters titial lung diseas e. Discus aziza: Noncon traste d multid etecto r chest CT was perfor med which includ ed high-r esolut ion inspir atory and expira tory views. Patien t could not lie prone due to shortn ess of breath and back issues . There is a modera te perica rdial effusi on, increa sed from the prior study. Most of the fluid is adjace nt to the left heart border . Small bilate ral pleura l effusi ons. Bibasi lar compre ssive atelec tasis. No eviden ce of pulmon christa edema. No eviden ce of pulmon christa fibros is. No air trappi ng. Normal centra l airway s. No bronch iectas is. Chroni c thin-w alled cysts in the left lower lobe. Chroni c calcif ied granul omatou s diseas e. No medias tinal or hilar adenop athy. Improv ed bilate ral axilla ry adenop athy. Multip le thorac ic and lumbar compre ssion fractu res, new from 2017 althou gh none of these look acute. Severe anteri or wedgin g of T11. If acute pain recomm end MRI to better evalua te [facility]. IMPRES AZIZA: 1. Modera te perica rdial effusi on, increa sed from 2017. New small bilate ral pleura l effusi ons. Bibasi lar compre ssive atelec tasis. No eviden ce of pulmon christa edema. 2. No eviden ce of inters titial fibros is. 3. Improv ed axilla ry adenop athy from 2017. 4. Multip le thorac ic and lumbar compre ssion fractu res, most severe involv ing T11. None of these look acute but if acute sympto ms MRI would better assess [facility]. ELECTR ONICAL LY SIGNED BY: MENDEL HA M.D. Oct 10 2019 10:48A M Dictat ed: Oct 10 2019 10:48A M Transc ribed: Oct 10 2019 10:48A M [id number] Disper sed: Oct 10 2019 10:48A M Attend ing Dr: MICHAEL LILLY ing Dr: MICHAEL LILLY Primar y Care: OSMEL CRENSHAWpa Doctor (s): ELECTR ONICAL LY SIGNED BY: MENDEL HA M.D. 2019 10:48A M ^ [email or web address] Asv [facility] [address] [facility], [place], [address], 10/11/2019 16:06:51 Result Notes Documentation Provider Name and Address Organization Details Recorded Time Ct, Chest, W/o Contrast : [facility] CT EXAMINATION: CT CHEST WO/C - ACC #: [id number] CPT: 51371 Mod: RIS Order: [id number] (COUNTS INCLUDE 234 BEDS AT THE [facility]) (0010) HIS Order:[id number] STARTED: Oct 10 2019 10:06AM COMPLETED: Oct 10 2019 10:25AM TECH INITIALS: MMR FULL RESULT: CT chest with high resolution imaging, No contrast COMPARISON: 03/30/2017 INDICATION: Collagen vascular disease/lupus. Assess for interstitial lung disease. Discussion: Noncontrasted multidetector chest CT was performed which included high-resolution inspiratory and expiratory views. Patient could not lie prone due to shortness of breath and back issues. There is a moderate pericardial effusion, increased from the prior study. Most of the fluid is adjacent to the left heart border. Small bilateral pleural effusions. Bibasilar compressive atelectasis. No evidence of pulmonary edema. No evidence of pulmonary fibrosis. No air trapping. Normal central airways. No bronchiectasis. Chronic thin-walled cysts in the left lower lobe. Chronic calcified granulomatous disease. No mediastinal or hilar adenopathy. Improved bilateral axillary adenopathy. Multiple thoracic and lumbar compression fractures, new from 2017 although none of these look acute. Severe anterior wedging of T11. If acute pain recommend MRI to better evaluate chronicity. IMPRESSION: 1. Moderate pericardial effusion, increased from 2017. New small bilateral pleural effusions. Bibasilar compressive atelectasis. No evidence of pulmonary edema. 2. No evidence of interstitial fibrosis. 3. Improved axillary adenopathy from 2017. 4. Multiple thoracic and lumbar compression fractures, most severe involving T11. None of these look acute but if acute symptoms MRI would better assess chronicity. ELECTRONICALLY SIGNED BY: MENDEL MCKEON M.D. Oct 10 2019 10:48AM Dictated: Oct 10 2019 10:48AM Transcribed: Oct 10 2019 10:48AM [id number] Dispersed: Oct 10 2019 10:48AM Attending Dr: MICHAEL LILLY Admitting Dr: MICHAEL LILLY Primary Care: OSMEL CRENSHAW Additional Doctor(s): ELECTRONICALLY SIGNED BY: MENDEL MCKEON M.D.Oct 10 2019 10:48AM ^ Candy Zimmer RN null, [place] 10/11/2019 16:06:51 Problems Name Problem SNOMED Code Status Onset Date Resolution Date Notes Provider Name and Address Organization Details Recorded Time Postoperative hypothyroidis m 09722743 Active 2021 Cortez Gandara MD [address], [address], [place], [address] , [place] [facility] 2 11:03:31 Systemic lupus erythematosus 04861039 Active 2021 Cortez Gandara MD [address], [address], [place], [address] , [place] - [facility] 2 11:06:42 Idiopathic pulmonary fibrosis 677839976 Active 2021 Cortez Gandara MD [address], [address], [place], [address] , [place] [facility] 2 11:06:45 Body mass index 25-29 - overweight 850046706 Active Michael Lilly MD [address], [address], [place], [address] , [place] - [facility] 5 17:18:26 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 Michael Lilly MD [address], [address], [place], [address] , [place] [facility] 5 17:18:26 Computed tomography result abnormal 398808569 Active Corrina Silva null, [place] [facility] 5 15:08:47 Fibrocystic disease of breast 51412438 Active 2013 Not Available [facility] 4 00:06:40 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 Procedures Surgical History Date Name Laterality Status Provider Name and Address Organization Details Recorded Time 02/22/20 22 Laceration Repair with Sutures completed Yaima S Havill [employer] [address], [place], [address], [place] [facility] 02/21/2022 17:06:40 10/20/19 15 Colonoscopy completed Ivelisse Carr [place] [facility] 04/02/2015 16:42:54 09/19/19 06 Thyroid Surgery completed Michael Lilly MD [address], [place], [address], [place] [facility] 02/20/2014 15:55:37 09/19/18 96 Cholecystectomy completed Ivelisse Carr [place] [facility] 02/20/2014 15:34:27 Imaging Results None recorded. Procedure Notes None recorded. Medical Equipment None Reported. Allergies Allergen ID Allergen Name Allergen Category Reaction Reaction Severity Criticality Documentation Date Start Date Code Code System Note Provider Name and Address Organization Details Recorded Time 2630937 levofloxa britta medicatio n rash severe Not available 01/27/2021 85973 RxNorm Olimpia Hanson RN null, [facility] 14:39:37 [id number] bacitraci n / neomycin / polymyxin B medicatio n Not available Not available Not available 01/27/2021 55529 9 RxNorm Olimpia Hanson RN null, [facility] 14:39:54 [id number] Polyspori n medicatio n Not available Not available Not available 01/27/2021 12119 RxNorm Olimpia Hanson RN null, [facility] 14:40:00 [id number] Product containin g penicilli n (product) medicatio n Not available Not available Not available 11/10/20132013 16353 8001 SNOMED Not Available [facility] 4 14:20:48 [id number] Substance with sulfonami de structure and antibacte rial mechanism of action (substanc e) medicatio n Not available Not available Not available 11/10/20132013 45746 8003 SNOMED Not Available [facility] 4 14:20:48 Medications Name Sig Start Date Stop Date Status Note LastModified by Organization Details LastModified Time cyclobenza emily 10 mg tablet 11/05 completed Not Available Not Available Not Available fluconazol e 100 mg tablet 09/26 completed Not Available Not Available Not Available pilocarpin e 5 mg tablet 06/13 completed Not Available Not Available Not Available potassium chloride ER 10 mEq capsule,ex tended release 06/13 completed Not Available Not Available Not Available prednisone 10 mg tablet Take 1 tablet every day by oral route. 02/17 completed Not Available Not Available Not Available doxycyclin e hyclate 100 mg capsule 06/13 completed Not Available Not Available Not Available clindamyci n HCl 300 mg capsule 06/13 completed Not Available Not Available Not Available albuterol sulfate 2.5 mg/3 mL (0.083 %) solution for nebulizati on as needed 11/05 completed Not Available Not Available Not Available triamcinol one acetonide 0.5 % topical cream 06/13 completed Not Available Not Available Not Available azithromyc in 250 mg tablet TAKE 2 TABLETS BY MOUTH TODAY, THEN TAKE 1 TABLET DAILY FOR 4 DAYS UNTIL GONE active Not Available Not Available No t Available hydrocodon e 5 mg-acetami nophen 325 mg tablet 01/27 completed Not Available Not Available Not Available fluconazol e 200 mg tablet 09/26 completed Not Available Not Available Not Available prednisone 20 mg tablet TAKE 2 TABLETS BY MOUTH EVERY DAY IN THE MORNING FOR 5 DAYS active Not Available Not Available No t Available prednisone 5 mg tablet Take 1 tablet every day by oral route. active Not Available Not Available No t Available clindamyci n HCl 150 mg capsule TAKE 3 CAPSULES (450 MG) BY MOUTH 3 TIMES DAILY FOR 7 DAYS active Not Available Not Available No t Available metronidaz ole 500 mg tablet 07/18 completed Not Available Not Available Not Available azathiopri ne 50 mg tablet 10/15 completed Not Available Not Available Not Available ciprofloxa britta 250 mg tablet 06/13 completed Not Available Not Available Not Available ciprofloxa britta 500 mg tablet 06/13 completed Not Available Not Available Not Available omeprazole 40 mg capsule,de layed release 01/27 completed Not Available Not Available Not Available tramadol 50 mg tablet 11/05 completed Not Available Not Available Not Available levothyrox ine 75 mcg tablet 07/18 completed Not Available Not Available Not Available mycophenol ate mofetil 500 mg tablet 2 tablets a day 12/22 completed Not Available Not Available Not Available cefadroxil 500 mg capsule TAKE 1 CAPSULE (500 MG) BY MOUTH 2 TIMES DAILY FOR 10 DAYS active Not Available Not Available No t Available levothyrox ine 100 mcg tablet TAKE 1 TABLET TUESDAY THRU TUESDAY AND 2 TABLETS ON TUESDAY active Not Available Not Available No t Available oxycodone- acetaminop hen 5 mg-325 mg tablet 01/27 completed Not Available Not Available Not Available levothyrox ine 88 mcg tablet 04/02 completed Not Available Not Available Not Available methotrexa te sodium 2.5 mg tablet 2 tabs twice weekly 06/13 completed Not Available Not Available Not Available dicyclomin e 20 mg tablet 10/15 completed Not Available Not Available Not Available prednisone 1 mg tablet USE DIRECTED TO TAPER DOWN MEDICATI ON active Not Available Not Available No t Available doxycyclin e monohydrat e 100 mg capsule Take 1 capsule twice a day by oral route for 10 days. 02/21 completed Not Available Not Available Not Available prednisone 2.5 mg tablet Take 1 tablet every day by oral route. 06/13 completed Not Available Not Available Not Available cevimeline 30 mg capsule Take 1 capsule twice a day by oral route. 12/22 completed Not Available Not Available Not Available betamethas one dipropiona te 0.05 % topical cream 06/13 completed Not Available Not Available Not Available folic acid 1 mg tablet Take 1 tablet every day by oral route. 06/13 completed Not Available Not Available Not Available montelukas t 10 mg tablet TAKE 1 TABLET BY MOUTH EVERY DAY IN THE EVENING active Not Available Not Available No t Available mupirocin 2 % topical ointment APPLY A SMALL AMOUNT TO THE AFFECTED AREA BY TOPICAL ROUTE 3 TIMES PER DAY 02/17 completed Not Available Not Available Not Available furosemide 20 mg tablet 06/13 completed Not Available Not Available Not Available metoprolol succinate ER 25 mg tablet,ext ended release 24 hr Take 1 tablet every day by oral route. 01/27 completed Not Available Not Available Not Available Cheratussi n AC 10 mg-100 mg/5 mL oral liquid 10/21 completed Not Available Not Available Not Available hydroxychl oroquine 200 mg tablet TAKE 1 TABLET BY MOUTH EVERY DAY active Not Available Not Available No t Available ibuprofen 600 mg tablet TAKE 1 TABLET BY MOUTH THREE TIMES DAILY FOR 10 DAYS active Not Available Not Available No t Available mirtazapin e 15 mg disintegra ting tablet 01/27 completed Not Available Not Available Not Available methylpred nisolone 4 mg tablets in a dose pack 10/21 completed Not Available Not Available Not Available ondansetro n 4 mg disintegra ting tablet 10/15 completed Not Available Not Available Not Available dexamethas one sodium phosphate 10 mg/mL injection solution Take 10 mg by injectio n route. 02/21 completed Not Available Not Available Not Available diazepam 5 mg tablet Take 1 tablet as needed by oral route. 11/05 completed Not Available Not Available Not Available risedronat e 35 mg tablet TAKE 1 TABLET (35 MG) BY MOUTH EVERY 7 DAYS active Not Available Not Available No t Available Klor-Con M20 mEq tablet,ext ended release 06/13 completed Not Available Not Available Not Available Prilosec OTC 20 mg tablet,del ayed release Take 1 tablet every day by oral route. 11/05 completed Not Available Not Available Not Available calcium active Not Available Not Avail able Not Available cefadroxil active Not Available Not Av ailable Not Available methotrexa te weekly 10/15 completed Not Available Not Available Not Available triamcinol one active Tried this but made rash worse Not Available Not Available Not Available hydroxychl oroquine 200mg daily active Not Available Not Available No t Available Vitamin D daily 10/15 completed Not Available Not Available Not Available Actonel active weekly oral tablet Not Available Not Available Not Available diclofenac 1 % topical gel MIX 2 GRAMS ( 4 GRAMS IF BELOW UMBILICU S) WITH LIDOCAIN E AND APPLY EVERY 6 HOURS NEEDED. 01/27 completed Not Available Not Available Not Available Vitamin D-3 with Aloe 10/15 completed Not Available Not Available Not Available Colcrys 0.6 mg tablet TAKE 1 TABLET (0.6 MG) BY MOUTH 2 TIMES DAILY FOR 30 DAYS 11/05 completed Not Available Not Available Not Available levothyrox ine 100 mcg capsule Take 1 capsule every day by oral route. 10/21 completed Not Available Not Available Not Available Suprep Bowel Prep Kit 17.5 gram-3.13 gram-1.6 gram oral solution 09/26 completed Not Available Not Available Not Available lidocaine 5 % topical ointment JUAN M SEE DICLOFEN AC INSTRUCT IONS 01/27 completed Not Available Not Available Not Available methotrexa te 2.5 mg tablet Take by oral route. 10/21 completed 2 tabs twice a week Not Available Not Available Not Available Osphena 60 mg tablet 1 tab daily 06/13 completed Not Available Not Available Not Available Fioricet 50 mg-300 mg-40 mg capsule 10/21 completed Not Available Not Available Not Available Digest Probiotic (S.boulard ii) 250 mg capsule TAKE 1 CAPSULE (250 MG) BY MOUTH 2 TIMES DAILY FOR 10 DAYS active Not Available Not Available No t Available folic acid 0.8 mg capsule Take 1 capsule every day by oral route. 10/16 completed Not Available Not Available Not Available Benlysta 200 mg/mL subcutaneo us syringe active Not Available Not Available N ot Available Benlysta 200 mg/mL subcutaneo us auto-injec tor active Not Available Not Available Not Available Afluria Quad (PF) 60 mcg (15 mcg x 4)/0.5 mL IM syringe TO BE ADMINIST ERED BY PHARMACI ST FOR IMMUNIZA TION 10/15 completed Not Available Not Available Not Available Vitals Date Recorded Body height Body mass index (BMI) Body weight Respiratory rate Heart rate Systolic blood pressure Diastolic blood pressure Provider Name and Address Organization Details Last Updated DateTime 0 172.72 cm 21.5 kg/m2 73103.3 2 g 18 /min 116 /min 112 mm[Hg] 60 mm[Hg] Renita Gibson RN [place] [facility] 0 10:51:40 Date Recorded Oxygen saturation Oxygen saturation in Arterial blood by Pulse oximetry Oxygen saturation Oxygen saturation in Arterial blood by Pulse oximetry Oxygen saturation Oxygen saturation in Arterial blood by Pulse oximetry Inhaled oxygen flow rate Provider Name and Address Organization Details Last Updated DateTime 0 93 % 93 % 88 % 88 % 90 % 90 % 3 L/min Carmina BESS IN [facility] 0 10:48:53 Date Recorded Body height Oxygen saturation Oxygen saturation in Arterial blood by Pulse oximetry Inhaled oxygen flow rate Body mass index (BMI) Body weight Heart rate Systolic blood pressure Diastolic blood pressure Provider Name and Address Organization Details Last Updated DateTime 0 172.72 cm 93 % 93 % 4 L/min 20.5 kg/m2 94921.1 7 g 68 /min 110 mm[Hg] 88 mm[Hg] Candy Zimmer RN [place] [facility] 0 15:27:06 Date Recorded Body height Body temperature Body mass index (BMI) Body weight Heart rate Respiratory rate Systolic blood pressure Diastolic blood pressure Provider Name and Address Organization Details Last Updated DateTime 1 172.72 cm 98.7 [degF] 24.1 kg/m2 17193.6 9 g 120 /min 18 /min 126 mm[Hg] 79 mm[Hg] Olimpia Hanson RN [place] [facility] 1 14:36:17 Date Recorded Body weight Body mass index (BMI) Body height Oxygen saturation Oxygen saturation in Arterial blood by Pulse oximetry Heart rate Respiratory rate Body temperature Systolic blood pressure Diastolic blood pressure Provider Name and Address Organization Details Last Updated DateTime 2 45814.6 3 g 25.5 kg/m2 165.1 cm 98 % 98 % 88 /min 15 /min 98.18 [degF] 118 mm[Hg] 76 mm[Hg] Nasra Bower [place] [facility] 2 10:30:04 Date Recorded Body height Body mass index (BMI) Body weight Body temperature Heart rate Respiratory rate Systolic blood pressure Diastolic blood pressure Provider Name and Address Organization Details Last Updated DateTime 2 165.1 cm 25.7 kg/m2 42238.6 6 g 97.3 [degF] 91 /min 16 /min 120 mm[Hg] 76 mm[Hg] Caroline Connors LPN [place] [facility] 2 14:07:45 Social History Question Answer Notes LastModified by Organizat ion Details LastModified Time Tobacco Smoking Status Never Smoker Not Available [employer] 02/17/2022 10:10:35 Do You Have An Advance Directive? No [email or web address] Information not available 02/17/2022 What Is Your Level Of Caffeine Consumption? Heavy [email or web address] Information not available 02/17/2022 How Much Tobacco Do You Chew? None [email or web address] Information not available 01/27/2021 Which Illicit Or Recreational Drugs Have You Used? Denies Use [email or web address] Information not available 01/27/2021 Live Alone Or With Others? With Others [email or web address] [id number] Information not available 02/20/2014 Have You Had A Fever And/or Symptoms Of A Lower Respiratory Illness (cough, Difficulty Breathing, Etc)? No [email or web address] Information not available 01/27/2021 Have You Had Any Of These Symptoms: Chills ,Headache, Fatigue, Muscle Or Body Aches , Sore Throat, New Loss Of Taste Or Smell, Nausea Or Vomiting, Or Diarrhea? No [email or web address] Information not available 01/27/2021 Have You Had A COVID-19 Vaccine In The Last 7 Days? No [email or web address] Information not available 02/17/2022 In The Past 10 Days, Have You Been Told You May Have COVID-19 Or Have Been Tested For COVID-19? No [email or web address] Information not available 02/17/2022 Marital Status [place] [address] Informatio n not available 02/20/2014 What Was The Date Of Your Most Recent Tobacco Screening? 12/22/2018 [email or web address] Information not available 01/27/2021 How Many Children Do You Have? 0 Information not available 01/27/2021 Performs Monthly Self-breast Exam? Yes Information no t available 10/21/2014 Seat Belts Used Routinely Yes Information not available 10/21/2014 Are You Sexually Active? Yes Information not available 01/27/2021 Do You Have Smoke And Carbon Monoxide Detectors In Your Home? Yes [email or web address] Information not available 02/17/2022 Are You Passively Exposed To Smoke? No Information no t available 01/27/2021 How Much Tobacco Do You Smoke? No [email or web address] Information not available 02/17/2022 How Many Years Have You Smoked Tobacco? 0 [email or web address] Information not available 01/27/2021 Sex: Female Functional Status Question Answer Note LastModified by Organizat ion Details LastModified Time What is your level of alcohol consumption? Occasional [email or web address] Information not available 02/17/2022 Do you or have you ever used smokeless tobacco? Never used smokeless tobacco [email or web address] Information not available 01/27/2021 Are you currently employed? Yes [email or web address] Information not available 01/27/2021 What is your occupation? [employer] [email or web address] Information not available 01/27/2021 Do you or have you ever used e-cigarettes or vape? Never used electronic cigarettes [email or web address] Information not available 01/27/2021 Mental Status None recorded. Family History Relationship Description Onset Age of this Age Resolved Age Notes LastModified by Organization Details LastModified Time Mother Heart disease [email or web address] Not available 2014 17:12:48 Mother Diabetes mellitus Not available 2014 17:12:48 Father Cerebrovascu lar accident [email or web address] Not available 10:47:13 Brother No current problems or disability [email or web address] Not available 02/17 10:10:33 Brother No current problems or disability [email or web address] Not available 02/17 10:10:33 Medical History Condition Response hypothyroidism Y other neurologic issue Y lupus Y congenital heart disease N tuberculosis N asthma N COPD N high blood pressure N kidney disease N emphysema N arrhythmia Y chicken pox Y heart disease N lung disease N pulmonary embolism N Gynecological History Statement/Question Response Abnormal Pap N (do not use)Date and Result of Last Mamm ogram 2013 (do not use) Date and Result of Last Col onoscopy 09-18-14 Sexually Active? Y STIs/STDs N (do not use)Date and Result of Last Pap 06/08/10 Current Control Method Ablation LMP Induced Abortions N Hormone Replacement Therapy N Obstetrics History GPAL:G 0 P 0 0 0 0 Immunizations Vaccine Type Date Status Note Provider Nam e and Address Organization Details Recorded Time Influenza, split virus, quadrivalent, preservative 5 completed Octavio Hill RN null, [place] [facility] [place] 03/31/2016 15:55:47 influenza, unspecified formulation 8 completed Oly Ennis [place], [place] [facility] [place] 10/06/2017 16:09:13 Pneumococcal conjugate PCV 13 6 completed Not Available [facility] 10/06/2019 03:20:53 Influenza, split virus, trivalent, preservative 9 completed Candy Zimmer RN [place], [place] [facility] [place] 11/06/2019 15:30:45 Influenza, MDCK, trivalent, PF 3 completed Ivelisse Carr null, [place] [facility] [place] 02/20/2014 15:34:27 Tdap 3 completed Cortez Gandara MD [address] [place] [address], [facility] [address], [facility] [place], [address], [place] [facility] 02/17/2022 11:10:48 Past Encounters Encounter ID Performer Location Encounter Start Date Encounter Closed Date Diagnosis/Indication Diagnosis SNOMED-CT Code Diagnosis ICD10 Code Diagnosis Note [id number] zFNL_EVA_ SMG_[address] [facility] [place] [address] 06/03/2009 00:00:00 [id number] zFNL_EVA_ SMG_[address]tic o[address] [facility] [place] [address] 06/08/2010 00:00:00 [id number] zFNL_EVA_ SMG_Antic oag_[address] [facility] [place] [address] 08/30/2011 00:00:00 [id number] zFNL_EVA_ SMG_Antic oag_[address] [facility] [place] [address] 10/01/2013 00:00:00 [id number] Michael Lilly MD zCLSD_EVA _SMG_PULM [address] [facility],[address] [place] [address] 02/20/2014 15:03:53 02/20/2014 16:07:29 Body mass index 25-29 - overweight 140541129 Sj gren's syndrome 59898569 The patient does have history of sicca syndrome and she is presently being treated with methotrexa te. Her only complains of dyspnea exertion with moderate to strenous activity but the patient is deconditio glenda. Her pulmonary function test revealed normal spirometry , normal lung volumes and a almost normal diffusion lung capacity. Considerin g her history and treatment the patient should have a complete PFTs in about a year to assess her lung function. [id number] MD JENNY TurnerA_SMG_[place] [place] [address] 10/21/2014 13:40:57 10/21/2014 14:48:25 Gynecologic examination 85402160 Pt is here for an annual exam, doing well. [id number] Michael Lilly MD zCLSD_EVA _SMG_PULM [address] [place] [address] 04/02/2015 16:01:47 04/02/2015 17:21:26 Body mass index 25-29 - overweight 603825138 BMI 26.6 Sj gren's syndrome 85915805 The patient does have history of sicca syndrome and she is presently being treated with Evoxac. Her pulmonary function test revealed normal spirometry , normal lung volumes and a almost normal diffusion lung capacity. Considerin g her history and treatment the patient should have a complete PFTs in a year to monitor her lung function. [id number] Michael Lilly MD zCLSD_EVA _SMG_PULM [address] [place] [address] 03/31/2016 15:34:23 03/31/2016 16:51:37 Administration of pneumococcal vaccine 95321571 Z23 The patient thinks she had Pneumovax 23 about 5-10 years ago. I will complete her pneumonia vaccinatio n today with a Prevnar 13. Pulmonary function studies abnormal 288470476 R94.2 The patient has a significan t past medical history of sicca syndrome (Sjogren's ). Her pulmonary function tests have remained stable since January 2014. There is only a mild decrease in diffusion lung capacity. Another complete set of PFTs will be performed next year to assess the stability of her lung function. Sj gren's syndrome 85020765 M35.01 Under the care of rheumatolo gy. Presently the patient is not receiving any treatment. [id number] Michael Lilly MD zCLSD_EVA _SMG_PULM [address] [facility],[address] [place] [address] 03/31/2017 15:41:38 03/31/2017 17:04:53 Pulmonary function studies abnormal 333419561 R94.2 The patient has a significan t past medical history of sicca syndrome (Sjogren's ). Her pulmonary function tests have remained stable from 2013 to 2015. There was only a mild decrease in diffusion lung capacity. Unfortmisha barraza this year after being off methotrexa te for 9 months the patient's diffusion lung capacity decreased 8%. She has been back taking methotrexa te for the last 4 months. I will repeat another PFTs in September 2017 to make sure that there is no worsening. Sj gren's syndrome 86808199 M35.01 Under the care of Dr. Santana (rheumatol [facility]). She is back on methotrexa te [id number] MD fritz AlvarezCLSHannah_EVA _SMG_PULM _[address] [facility],[address] [place] [address] 10/06/2017 15:44:33 10/06/2017 16:47:15 Pulmonary function studies abnormal 840229477 R94.2 The patient has a significan t past medical history of sicca syndrome (Sjogren's ). Her pulmonary function tests have remained stable from 2013 to 2015. There was only a mild decrease in diffusion lung capacity. Yung barraza in 2016 after being off methotrexa te for 9 months the patient's diffusion lung capacity decreased 8%. She has been back taking methotrexa te for the last 10 months. Her repeat PFTs in September 2017 revealed a stable DLCO, I will continue monitoring her PFT's, another one will be performed next year. Sj gren's syndrome 37486318 M35.01 Under the care of Dr. Santana (rheumatol og). She is back on methotrexa te [id number] ARON TOBIN, SPORTS MARKETER zCLSD_EVA _SMG_UC_W [facility]Cross [address] [place] [address] 07/18/2018 10:32:24 07/18/2018 12:02:45 Cough 74083792 R05 Discussed findings [id number] Michael Lilly MD zCLSD_EVA _SMG_PULM [address] [place] [address] 10/16/2018 08:33:23 10/16/2018 09:21:30 Pulmonary function studies abnormal 369202267 R94.2 The patient has a significan t past medical history of sicca syndrome (Sjogren's ). Her pulmonary function tests have remained stable from 2013 to 2015. There was only a mild decrease in diffusion lung capacity. Unfortunat madi in 2016 after being off methotrexa te for 9 months the patient's diffusion lung capacity decreased 8%. She has been back taking methotrexa te for the last 10 months. Her repeat PFTs in September 2017 revealed a stable DLCO, I will continue monitoring her PFT's, another one will be performed next year. Systemic l upus erythematosus 28893544 M32.9 Under the care of Dr. Santana (rheumatol [facility]). She is now on mycophenol ate Dyspnea on exertion 6084 5006 R06.09 Patient has been advised to walk on her treadmill everyday, for 1 hour at 2.5 to 3.0 miles per hour. [id number] Reid Hoyos DO zCLSD_EVA _SMG_UC_W [facility] [address] [place] [address] 10/28/2018 13:41:33 10/28/2018 14:45:11 Myositis 92551314 M60.9 Left trapezius. No joint tenderness when checked. She has Sjogren's and Lupus. ( autoimmonu e conditions -on immunosupp resive med) Will try to use topical versus systemic to minimize pill burden on her system. [id number] Baldoelvin DO Romain zCLSD_EVA _SMG_UC_W [facility] [address] [place] [address] 12/22/2018 17:37:43 12/22/2018 18:40:38 Cellulitis of left upper limb 0325365775 7600942 L03.114 Started at anterior distal left forearm and the erythema has slow spread to elbow level. Now the right side starting to have one. Allergic to PCN and sulfa. Will use Doxycyclin e. [id number] Michael Lilly MD zCLSD_EVA _SMG_PULM _[facility] [address] [place] [address],[address], [place] [address] [place] [address] 0 06/13/2019 13:39:28 06/13/2019 16:54:42 Pulmonary function studies abnormal 421210604 R94.2 The patient has a significan t past medical history of sicca syndrome (Sjogren's ) and lupus. Pulmonary function tests remain stable from 2013 to 2015. Since 2016 the patient's DLCO has decreased reason why the methotrexa te has been discontinu ed altogether . She is due for another PFT on September 2017 when I will follow-up with her. She seems to be doing well from her recent pneumonia. Systemic l upus erythematosus 73245218 M32.9 Under the care of Dr. Santana (rheumatol og). Hydroxychl oroquine 200 mg p.o. once a day and prednisone 50 mg p.o. once a day. [id number] Michael Lilly MD zCLSD_EVA _SMG_PULM _[facility] [address] [place] [address],[address], [place] [address] [place] [address] 0 09/27/2019 08:40:49 09/27/2019 11:27:17 Chronic hypoxemic respiratory failure 044820622 J96.11 Now that the patient complains of distant exertion a 6-minute walk test was performed. She is hypoxic with very little activity. She will require 3 L of oxygen with activity and at bedtime. She does not need oxygen while she is sitting down. Her oxygen at rest is 93% on room air. Pulmonary function studies abnormal 720788378 R94.2 See above Systemic l upus erythematosus 94299946 M32.[address] Santana, rheumatolo gy. 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 Pulmonary function tests remained stable from 2013 to 2015. In 2017 the DLCO decreased and methotrexa te was discontinu ed. Yung barraza her last pulmonary function test revealed a total lung capacity of only 50% when 12 months before it was 101%. Her DLCO is now only 29% and 12 months ago it was 64%. These are very drastic changes. It seems the patient is developing pulmonary fibrosis secondary to vascular disease. I am aware that she is being referred to the rheumatolo gy department at [facility] . She has an appointmen t scheduled for 10/01/2019. I will refrain from ordering any more test and await for their evaluation and opinion. The patient may benefit from a high-resol ution CT scan of the chest. 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 Pulmonary function tests remained stable from 2013 to 2015. In 2017 the DLCO decreased and methotrexa te was discontinu ed. Yung barraza pulmonary function test from 09/2019 revealed a total lung capacity of only 50% when 12 months before it was 101%. Her DLCO is now only 29% and 12 months ago it was 64%.These are drastic changes, the patient is most liklely developing pulmonary fibrosis secondary to SLE/Sjogre n's. I will check another PFT in about 6 months to assess the progressio n of her ILD. Chronic hy poxemic respiratory failure 755979269 J96.11 The patient remains compliant using oxygen at rest per minute at all time including at HS. Systemic l upus erythematosus 61893963 M32.[address] Santana, rheumatolo gy. Patient is now receiving Benlysta and in the future might even be receiving CellCept. I will await for response and check pulmonary function test in March 2020. If the patient fails to respond, a lung transplant evaluation could be morales batista [id number] Nay Ortiz PA-C zCLSD_EVA _SMG_UC_W [facility] [address] [place], [place] [address] [place] [address] 4 01/27/2021 14:24:51 01/27/2021 15:19:16 Tear of skin 108259333 T14.8XXA [id number] Cortez Gandara MD zCLSD_EVA _SMG_UC_W [facility] [address] [place], [place] [address] [place] [address] 4 02/17/2022 10:00:01 02/17/2022 11:12:34 Swelling of left foot 159387831 M79.89 Pruritic disorder 654121 002 L29.9 Blister of toe with infection 42491521 L08.9 Sj gren's syndrome 12525346 M35.00 Postoperat faby hypothyroidism 01848746 E89.0 Systemic l upus erythematosus 91989686 M32.9 Idiopathic pulmonary fibrosis 896462079 J84.112 [id number] Yaima Jane [employer] MARKETER zCLSD_EVA _SMG_UC_W [facility] [address] [place], [place] [address] [place] [address] 4 02/21/2022 13:57:51 02/21/2022 15:10:25 Laceration of lower leg without foreign body 206128212 S81.812A Patient was evaluated for new V-shaped 3 cm laceration to Left Lateral Distal Anterior Lower Leg. Bleeding controlled . Injury obtained when she hit it against an dredge or barge shore hand. Skin is extremely fragile d/t long-term steroid use for autoimmune disease . Wound was copious irrigated after local aesthetic, no FB identified . 9x simple interrupte d suture placed, wound approximat ed well. tetanus up to date per patient. Patient currently on doxycyclin e for other skin infection, which she started 2 days prior to clinic visit. Advised to continue taking antibiotic s as directed. Pressure dressing placed. educated on supportive care and when to seek are in future, understood and agreed to treatment plan. Due to fragility of skin, reinforced dressing and advised her to f/u at clinic or PCP if drainage occurs or wound reopens. Sj gren's syndrome 90980238 M35.00 Systemic l upus erythematosus 30393615 M32.9 Health Concerns Section Related Observation LastModified by Organization Detai ls LastModified Time None Recorded Concern Status LastModified by Organization Details LastModified Time None Recorded Advance Directives Directive N: Payers Insurance Date Sequence Insurance Name Policy Number Policy Chappell Covered Member ID Chappell Member ID Guarantor Name 02/21/2022 1 [place] [id number] Dave Hooks [id number] Dave Hooks 02/28/2015 1 [place] CHO[place] [id number] Dave Hooks [id number] Dave Hooks Notes Date Note Type Note Provider Name and Address Organization Details Recorded Time 09/27/2019 text/html Mayte is a 53-year-old female with significant past medical history of sicca syndrome and lupus treated with prednisone and hydroxychloroquine. She was previously treated with methotrexate for 7 years. The patient is a lifelong nonsmoker, without any history of asthma or exposure to compounds related to pneumoconiosis. She is still having dry eyes and mouth. Since her last visit the patient was admitted to the hospital in April 2019 for persisting cough. The patient was discharged with a diagnosis of pneumonia. She was been treated with methotrexate since 2010 to February 2016. Methotrexate was discontinued after the patient developed a mild increase in her liver function tests. A few months later the patient developed a rash that she believed was secondary to Sjogren's. She was restarted on methotrexate in November 2016 after being off methotrexate for 9 months. Unfortunately the patient's diffusion lung capacity that has been stable since 2013, 2014 and 2016 (72-74%) decreased in 2017 to 65% and 64% in 2019. Methotrexate was discontinued then. She is under the care of Dr. Santana, rheumatology. The patient comes back today for a follow-up visit after I spoke to his PCP yesterday who was evaluating the patient for SOB and prominent IBARRA. She was found to be hypoxic. I offered a visit today to arrange for home 02. She is being referred to Rheumatology at [facility]. She has an appointment next week.Since last year the patient has developed obvious restrictive lung disease. Her TLC now is half of what used to be just last year. Her DLCO also has decreased more than half in the last 12 months. This findings are very concerning for Lupus ILD, specifically pulmonary fibrosis.See data below.DATA DLCO - TLC01/2014 - 74% 112%02/2015 - 72% 104%03/2016 - 73% 112%03/2017 - 65% 106%09/2017 - 66% 106%09/2018 - 64% 101%09/2019 - 29% 50% Michael Lilly MD [address] [place] [address], [address], [facility] [place], [address], [place] - [place] [facility] 09/27/2019 11:40:27 11/06/2019 text/html Mayte is a 54-year-old female with significant past medical history of Sjogren's syndrome and systemic lupus treated with prednisone and hydroxychloroquine. The patient is a lifelong nonsmoker, without any history of asthma or exposure to compounds related to pneumoconiosis. She was treated with methotrexate since 2010 to February 2016. Methotrexate was discontinued after the patient developed a mild increase in her liver function tests. A few months later the patient developed a rash that she believed was secondary to Sjogren's. She was restarted on methotrexate in November 2016 after being off methotrexate for 9 months. Unfortunately the patient's diffusion lung capacity that had been stable since 2013, 2014 and 2015 (72-74%) decreased in 2017 to 65%. Methotrexate was discontinued then. On her last visit I found the patient to be hypoxic and oxygen supplementation was started. PFTs from 10/08 revealed 20 DLCO of only 29% on a total lung capacity that have decreased to 50%. Her primary care physician referred the patient to [facility] Rheumatology department for an opinion regarding treatment. They agree with her present management. The patient comes back today for a follow-up visit.Most recent PFTs revealed a TLC that now is half of what used to be [id number]. Her DLCO also has decreased more than half in just 12 months. 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 A high-resolution CT scan of the chest was performed. There was no evidence of interstitial fibrosis but there was evidence of a moderate pericardial effusion with bilateral small pleural effusions. These findings were suggestive of serositis rather than pulmonary fibrosis.See data below:DATA DLCO - TLC01/2014 - 74% 112%02/2015 - 72% 104%03/2016 - 73% 112%03/2017 - 65% 106%09/2017 - 66% 106%09/2018 - 64% 101%09/2019 - 29% 50% Michael Lilly MD [address], [place], [address], [place] - [place] [facility] 11/06/2019 16:54:30 01/27/2021 text/html Mayte Hooks is a 55yo female with SLE, interstitial lung disease, sjogren's syndromePatient presents to clinic with new skin tear of the R dorsal mid forearm, obtained 2 days ago after hitting the forearm against door jam causing skin tear. Reports bled for 10 minutes after injury, the resolved spontaneously. skin flap is present, wound is pink and moist. has been washing with an antiseptic wash for the first 2 days of injury, today washed with soap and water. Denies spreading eryhtema around the area, pus, drainage, or new tenderness. mildly tender to touch the area. has been applying vasoline daily to area, covering with clean dressing. currently on prednisone 10 mg tablet daily for SLE and medical conditions. has had skin tears in past and healed without problems. no history of staph or MRSA in past.covid vaccination complete 2/ Nay Otriz PA-C [address], [place], [address], [place] - [place] 01/27/2021 15:31:30 02/17/2022 text/html She presented to be seen today for some problems with her left foot. She states both of her feet were fine 2 days ago in the morning. That was and she was outside a lot during the day. She states she had flip-flops on most today but there was a time when she took them off. Most the time she try to stay in the shade but she noticed at one point that her left foot was getting a little more sun than anywhere else on her body. Later that evening she noticed some swelling and slight discomfort in her foot. Yesterday she developed blistering on her left great toe and also the fourth toe of her left foot. Her foot became very swollen and red. Her biggest complaint, however, is itching. She states that her foot itches severely. The itching is mainly over the distal metatarsals down into all of her toes. The blisters have now opened up and she has raw skin underneath. She admits that she has been scratching considerably at this area. She states she is not actually having much discomfort as far as pain but the itching is driving her crazy. She has tried applying cold and this helps some. She also has been applying some triamcinolone cream that she has at home. She got concerned because everything looked worse today than even yesterday. She denies any fever, headache, body aches, chills, nausea, vomiting, diarrhea, or any other infectious symptoms. She does state that the open blisters have been weeping a little bit but the drainage has been clear to this point. She denies being exposed to any new soap, water detergent, shampoo, lotion, make-up, medication, food, or pet. Cortez Gandara MD [address] [place] [address], [address], [place], [address], [place] - [place] [facility] 02/17/2022 11:17:13 02/21/2022 text/html 56-year-old francisco javier willson presents to the walk-in clinic for laceration to left calf x 15 minutes ago. 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 Bleeding is controlled. Wound cleansed with SW and chlorhexidine. Last Tdap 05/2013. Patient has a prior medical history of hypothyroidism, overweight, idiopathic pulmonary fibrosis, Sjogrens syndrome and systemic lupus. No other issues or concerns were addressed at this time. Yaima Jane NP [address] [place] [address], [address], [place], [address], [place] - [place] [facility] 02/21/2022 18:27:23 OBGyn Episode No OBEpisode recorded.
--- OUTSIDE RECORDS SUMMARY | 2025-03-20 10:56 | XMS_ITS | Encounter Summary ---
Author Organization [facility] tem Address [address] [place] [address], [place] [address] Care Team Providers Care Golf Course Mechanic Name Role Phone Donavon Echeverria MD Primary Care Provider [phone] Reason for Visit * Reason Comments Med Change Request Encounter Details Date Type Department Care Team (Late st Contact Info) Description 03/17/2025 [facility] Rheumatology [address] [place] [address] Jesse Mcbride MD [address] [place] [address] Med Change Request Social History Tobacco Use Types Packs/Day Years Used Date Smoking Tobacco: Never Smokeless Tobacco: Never Alcohol Use Standard Drinks/Week Comments Yes 2 (1 standard drink = 0.6 oz pure alcohol) Two glasses of wine per month, on average; beer occasionally [facility] Utilities Answer Date Recorded In the past [...] place to sleep or slept in a prison (including now)? No 11/24/2023 Housing Stability Vital Sign Answer Matt e Recorded In the last 12 months, was t here a time when you were not able to pay the mortgage or rent on time? No 01/29/2025 Number of Times Moved in the Last Year Not on fi le 01/29/2025 At any time in the past 12 m [facility], were you homeless or living in a prison (including now)? 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 Answer Entry Date Author No 01/26/2024 6:25 AM CDT Bharti Recio RN documented in this encounter Miscellaneous Notes * Telephone Encounter - Leonie Gómez CMA - 03/20/2025 9:58 AM CDT Tried to contact pt, unable to contact. Left message for patient to call back. * Telephone Encounter - Evelyn Ding RN - 03/18/2025 5:08 PM CDT Requested Prescriptions Requested Prescriptions Pending Prescriptions Disp Refills Mycophenolate Sodium (MYCOPHENOLIC ACID) 180 MG TBEC [Pharmacy Med Name: MYCOPHENOLIC ACID DR 180 MG TB] 270 tablet 1 Sig: TAKE 1 TABLET BY MOUTH TWICE DAILY FOR 2 WEEKS. IF TOLERATING, THEN INCREASE TO 2 TABLETS IN THE AM, 1 TABLET IN THE PM. LA: 02/20/25 NA: 04/16/25 LR: 02/20/25 Last Labs: 02/20/25 (needs 1 month monitoring labs after new start) MyChart sent to patient. documented in this encounter Plan of Treatment Upcoming Encounters Date Type Department Care Team (Late st Contact Info) Description 03/26/2025 8:00 AM CDT Appointment [address], [address] [place] [address] Anne Matthew MD [facility], [place] [id number] 04/02/2025 8:30 AM CDT Appointment [address], [place] [id number] 04/16/2025 8:30 AM CDT Office Visit [facility] Rheumatology [address] [place] [address], [place] [address] Jesse Mcbride MD [address] [place] [address] 05/13/2025 8:00 AM CDT Appointment Respiratory Services - [address] [facility] [place] [address] 05/15/2025 8:15 AM CDT [facility] [address] [place] [address] Cirilo Oneill MD [address] [place] [address], [place] [address] 07/24/2025 8:30 AM PARIMUTUEL CLERK Appointment [facility] [address] [place] [address] Liana Holden MD [address] [place] [address] 07/24/2025 9:10 AM PARIMUTUEL CLERK Office Visit [facility] [address] [place] [address] Liana Holden MD [address] [place] [address] 08/20/2025 10:00 AM PARIMUTUEL CLERK Office Visit [facility] [address] [place] [address], [address] [place] [address] Donavon Echeverria MD [address] [place] [address], [place] [address] 11/27/2025 8:00 AM CDT Office Visit [facility] Endocrinology [address] [place] [address] Devang Louise MD [address] [place] [address] documented as of this encounter Visit Diagnoses Diagnosis Systemic lupus erythematosus (SLE) in adult (HCC) Encounter for monitoring of belimumab therapy Encounter for monitoring of hydroxychloroquine therapy Interstitial lung disease (HCC) Postinflammatory pulmonary fibrosis Sjogren's syndrome without extraglandular involvement Encounter for long-term current use of high risk medication documented in this encounter Additional Health Concerns Assessment Noted Time PHQ-9 Depression Total Score: 3 02/06/20 25 8:19 AM CDT documented as of this encounter Care Teams Golf Course Mechanic Relationship Specialty Start Date End Date Donavon Echeverria MD [address] [place] [address] PCP - General Internal Medicine 10/28/16 documented as of this encounter
[2025-03-20 12:25] VITALS: BP 120/61; PULSE 57; RESP 18; O2SAT 98
[2025-03-20] MEDS: CLINDAMYCIN HCL 150 MG CAP 450 MG PO (12:49)
== END 2025-03-20 12:53 | disposition home or self-care (01) ==
PROVIDERS: Emergency Provider Registered Nurse
DX: S61.012A Laceration without foreign body of left thumb without damage to nail, initial encounter (principal); S60.812A Abrasion of left wrist, initial encounter; Z23 Encounter for immunization; M32.9 Systemic lupus erythematosus, unspecified; Z79.52 Long term (current) use of systemic steroids; V18.0XXA Pedal cycle driver injured in noncollision transport accident in nontraffic accident, initial encounter; Y93.55 Activity, bike riding
CPT/HCPCS: 12002; 90471; 90715; 99283; A9270